=== PATIENT | male | born 1965 ===

== ENCOUNTER 2019-09-17 17:26 | Emergency (ER) | payer BC ==
[2019-09-17] MEDS ORDERED: HYDROmorphone 1 MG/ML Syringe IVPUSH PRN (20:17)
[2019-09-17] MEDS ORDERED: Sodium Chloride 0.9% 2,000 ML IV ONE (20:17)
[2019-09-17] MEDS ORDERED: Vancomycin 1.5 GM in Sodium Chloride 0.9% 500 ML IV STA (20:18)
[2019-09-17] MEDS ORDERED: Ketorolac 30 MG/ML SDV IVPUSH ONE (20:18)
[2019-09-17] MEDS ORDERED: Cefepime 2 GM in Premix Bag 1 BAG IV ONE (20:22)
[2019-09-17] MEDS ORDERED: Clindamycin Phosphate in D5W 900 MG in Premix Bag 1 BAG IV ONE ×2 (20:43)
[2019-09-17] MEDS ORDERED: Iopamidol 755 Mg/ML 100 ML Bottle IVPUSH STA (20:59)
[2019-09-17 21:02] LABS: CARBON DIOXIDE,CO2 28.5 mmol/L (21.0-32.0); POTASSIUM,K 4.7 mmol/L (3.5-5.1)
--- NOTE | 2019-09-17 21:27 | CT ---
INDICATION: Swelling and redness posterior upper thigh. Sepsis. History of leukemia. TECHNIQUE: 100 mL Isovue-370 IV contrast. FINDINGS: Reticular attenuation in the medial posterior mid to distal subcutaneous soft tissues of the thigh. Small skin blisters above the subcutaneous edema attenuation and skin thickening over the level of edema. No organized fluid. Reticular and ill-defined hazy edema extends in the tissue plane of the medial compartment muscles along the inferior margin of the adductor muscles and under the gracilis and sartorius and along the medial margin of the semimembranosus. Minor low-attenuation reticular edema in the posterior inferior adductor hodan. No soft tissue air. IMPRESSION: Cellulitis with fasciitis and potentially myositis in the mid post medial thigh. No air is seen however necrotizing fasciitis is of concern by clinical history and imaging appearance. Results discussed with and acknowledged by ordering clinician Froylan Ni at 925 p.m. 17 September 2019. Please note that all CT scans at this facility use dose modulation, iterative reconstruction, and/or weight-based dosing when appropriate to reduce radiation dose to as low as reasonably achievable. Dictated by Humberto Morel MD @ Sep 17 2019 9:27PM Signed by Dr. Humberto Morel @ Sep 17 2019 9:27PM
[2019-09-17] MEDS ORDERED: Hydrocortisone Sodium Succinate 100 MG/2 ML SDV IVPUSH ONE (21:35)
--- NOTE | 2019-09-17 21:42 | EDM.PDOC ---
ED HPI GENERAL MEDICAL PROBLEM - General Chief Complaint: General Stated Complaint: NUMBNESS IN BACK AND ARM Time Seen by Provider: 09/17/19 19:44 - History of Present Illness INITIAL COMMENTS - FREE TEXT/NARRATIVE: HPI 53-year-old male with CLL on steroids presents for evaluation of 1+ day of right posterior mid thigh redness, warmth, pain, and swelling now with mild right AC joint pain and redness on some of his fingertips, febrile as of today with shaking chills; denies further symptoms. Patient does not drink alcohol. Triage note: c/o right thigh, left shoulder pain for 3 days. patient has hx of CLL M/S/F/SocHx notable for: please see HPI; remainder reviewed with patient and in chart. ROS: Negative constitutional, eye, cardiovascular, pulmonary, GI, , MSK, skin , neurologic, psychiatric, endocrine unless noted in the HPI. Exam HR 97, RR 20, BP 110/60, T 30.3C, SaO2 100% on room air at 6:26 PM. Gen: pleasant, unwell appearing, resting in significant discomfort, underclothing and appears to have chills. HEENT: NC, AT, PEERL, EOMI, neck supple, no goiter appreciated. Resp: Clear to auscultation bilaterally, normal work of breathing, no accessory muscle usage. Card: Regular rate and rhythm with no murmurs, rubs, or gallops, extremities warm and well perfused. GI: Non-tender to palpation throughout all quadrants, no focal tenderness at McBurney's point, negative Weston's sign, non-distended, no rebound or guarding. : No suprapubic tenderness to palpation. Perineum visually normal, visually normal male external genitalia. MSK/skin: * RLE - right mid thigh with approximately 10 cm wide by 15 cm long area of erythema, significant tenderness, and warmth, no crepitus or fluctuance. * RUE - right shoulder visually normal, no effusion, no pain on movement of his shoulder. There is AC joint tenderness to palpation. * Fingers left 3rd (middle) finger with erythema, warmth, and tenderness on the skin on the proximal/lateral aspect of the nail. Right 4th (ring) finger with identical findings. Hands and feet without Oslers nodes, Janeway lesions, or splinter hemorrhages. Neuro: alert and oriented 3, no facial asymmetry, vision and hearing WNL. Psych: Mood and affect appropriate. Focused Soft Tissue Ultrasound Procedure: Limited evaluation of the right mid posterior thigh. Indication: Limited cobblestoning, free fluid without gas between the tissue planes. Views obtained: sagittal and transverse. Findings: subcutaneous cobblestoning, fluid between tissue planes, no gas. Focused Cardiac Ultrasound Indication: Resuscitation Exam type (limited): Initial Views obtained: parasternal long, parasternal short, apical four chamber view, subxiphoid, subxiphoid long-axis view of the IVC. Findings: No pericardial effusion, parasternal short axis without flattening of the intraventricular septum, apical four without RV dilatation or septal bowing. Technically limited view with equivocal vegetation on mitral valve. Labs / Imaging (pertinent): WBC 251 (baseline from 08/03-09/02 from 260-363), Hb 11.1, PLT 172, PT/INR 1.00 , PTT 23.9, Na 134, K 4.7, creatinine 1.5, Bilirubin 1.4, Lactate 1.9, glucose 108, CRP 11.8. CT right lower extremity: cellulitis with fasciitis and potentially myositis in the mid posterior medial thigh. MDM Previous chart, nursing note, labs, imaging, and vitals reviewed. A: 53-year-old male with CLL on steroids presents for evaluation of 1+ day of right posterior mid thigh redness, warmth, pain, and swelling now with mild right AC joint pain and redness on some of his fingertips, febrile as of today with shaking chills; denies further symptoms.. Evaluation: Patient meets CMS sepsis screening guidelines (temperature and heart rate), source as below. Infectious Source: * Pulmonary: no cough, shortness breath, or further grabbing symptoms, imaging not pursued in the patients initial ED evaluation. * Urine: no symptoms, urinalysis not obtained. * Skin: concern for a cutaneous source given the initial symptoms were on the right posterior thigh, and this remains most prominent findings on exam. LRINEC is not felt to be clinically affable giving the underlying CLL. CT concerning for cellulitis with fasciitis. * METHOD CONSULTANT: Doubt given the lack of meningismus, petechia, and the overall clinical presentation. * Abdomen: Doubt given the non-tender abdomen and an alternate source. * Spine: Given the absence of back pain and an alternate source further investigation for possible epidural abscess, spinal osteomyelitis, or discitis are not currently warranted. * Lines: Patient without indwelling lines/ports. Resuscitation: * Blood cultures, 2 L NS, p.r.n. hydromorphone, 30 mg Toradol, 900 mg clindamycin, 1.5 g vancomycin (ordered, 1 g given), and 2 g cefepime (patient with PCN allergy) ordered with the initial evaluation. * 18gauge in left AC, right arm 16gauge ordered. Central line not presently indicated. * 100 mg Hydrocortisone stress dose ordered. * Patient accepted by Dr. Ramos. Disposition: transported by [facility] to [facility]. Impression: sepsis, cellulitis, ?necrotizing fasciitis. (please reference below for remainder of encounter information) Critical Care Time Organ system(s): Cardiopulmonary, vascular, METHOD CONSULTANT, Renal Intervention: Assessment of the patient, interpretation of studies, communication related to patient care. Time: 45 minutes were spent directly related to patient care exclusive of separately billed procedures left shoulder Pain Score (Numeric/FACES): 9 right thigh Pain Score (Numeric/FACES): 10 - Related Data Allergies Allergy/AdvReac Type Severity Reaction Status Date / Time Penicillins Allergy Cannot Verified 09/17/19 18:31 Remember Home Meds: Home Meds Folic Acid 1 tab PO DAILY 09/17/19 [History] Omeprazole 1 tab PO DAILY 09/17/19 [History] predniSONE 70 mg PO DAILY 09/17/19 [History] Past Medical History HEENT History: Reports: Other (See Below) Other HEENT History: reading glasses, has areli hearing aids Cardiovascular History: Reports: None Respiratory History: Reports: None Gastrointestinal History: Reports: GERD Genitourinary History: Reports: Renal Calculus Musculoskeletal History: Reports: Fracture Other Musculoskeletal History: hx of fx collarbone Neurological History: Reports: None Psychiatric History: Reports: None Endocrine/Metabolic History: Reports: None Hematologic History: Reports: Other (See Below) Other Hematologic History: CLL Immunologic History: Reports: None Oncologic (Cancer) History: Reports: Other (See Below) Other Oncologic History: chronic lymphocytic leukemia Dermatologic History: Reports: None - Infectious Disease History Infectious Disease History: Reports: None - Past Surgical History Head Surgeries/Procedures: Reports: None HEENT Surgical History: Reports: Naso-Sinus Surgery, Tonsillectomy Other HEENT Surgeries/Procedures: hx ear drum reconstruction Male Surgical History: Reports: Lithotripsy ([facility]) Social & Family History - Family History Family Medical History: Noncontributory - Tobacco Use Smoking Status *Q: Former Smoker Used Tobacco, but Quit: Yes Month/Year Tobacco Last Used: 2008 - Caffeine Use Caffeine Use: Reports: Tea - Recreational Drug Use Recreational Drug Use: No ED ROS GENERAL - Review of Systems Review Of Systems: See Below ED EXAM, GENERAL - Physical Exam Exam: See Below Course - Vital Signs Last Recorded V/S: Last Vital Signs Temp 37.1 C 09/17/19 21:15 Pulse 106 H 09/17/19 21:15 Resp 20 09/17/19 21:15 BP 109/65 09/17/19 21:15 Pulse Ox 97 09/17/19 21:15 - Orders/Labs/Meds Orders: Active Orders 24 hr Category Date Time Status CULTURE BLOOD [BC] Stat Lab 09/17/19 20:22 Received CULTURE BLOOD [BC] Stat Lab 09/17/19 21:07 Received HYDROmorphone [Dilaudid] Med 09/17/19 20:17 Active 0.5 - 1 mg IVPUSH Q1H PRN Sodium Chloride 0.9% [Normal Saline] 2,000 ml Med 09/17/19 20:17 Active IV .Bolus Vancomycin 1 gm Med 09/17/19 20:41 Active Sodium Chloride 0.9% [Normal Saline (AdvBag)] 250 ml IV NOW Blood Culture x2 Reflex Set [OM.PC] Stat Oth 09/17/19 20:14 Ordered Medication Orders Hydromorphone HCl (Dilaudid) 0.5 - 1 mg IVPUSH Q1H PRN PRN Reason: Pain Last Admin: 09/17/19 20:36 Dose: 1 mg Sodium Chloride (Normal Saline) 2,000 mls @ 1,000 mls/hr IV .Bolus ONE Stop: 09/17/19 22:16 Last Admin: 09/17/19 20:37 Dose: 1,000 mls/hr Vancomycin HCl 1 gm/ Sodium (Chloride) 250 mls @ 166 mls/hr IV NOW STA Stop: 09/17/19 22:11 Labs: Laboratory Tests 09/17/19 09/17/19 09/17/19 Range/Units 20:22 20:22 20:22 WBC 251.25 H (4.0-11.0) K/uL RBC 3.50 L (4.50-5.90) M/uL Hgb 11.1 L (13.0-17.0) g/dL Hct 38.8 (38.0-50.0) % MCV 110.9 H (80.0-98.0) fL MCH 31.7 (27.0-32.0) pg MCHC 28.6 L (31.0-37.0) g/dL RDW Std Deviation 68.6 H (28.0-62.0) fl RDW Coeff of Vale 20 H (11.0-15.0) % Plt Count 172 (150-400) K/uL MPV 10.40 (7.40-12.00) fL Add Manual Diff YES Neutrophils % (Manual) 0 L (48.0-80.0) % Lymphocytes % (Manual) 99 H (16.0-40.0) % Monocytes % (Manual) 1 (0.0-15.0) % Nucleated RBC % 0.0 /100WBC Absolute Seg Neuts 0.0 L (1.4-5.7) Lymphocytes # (Manual) 248.7 H (0.6-2.4) Monocytes # (Manual) 2.5 H (0.0-0.8) Nucleated RBCs # 0 K/uL INR 1.00 APTT 23.9 (18.6-31.3) SEC Lactate 1.9 (0.20-2.00) mmol/L Sodium (136-148) mmol/L Potassium (3.5-5.1) mmol/L Chloride (98-107) mmol/L Carbon Dioxide (21.0-32.0) mmol/L BUN (7.0-18.0) mg/dL Creatinine (0.8-1.3) mg/dL Est Cr Clr Drug Dosing mL/min Estimated GFR (MDRD) ml/min Glucose (74-106) mg/dL Calcium (8.5-10.1) mg/dL Total Bilirubin (0.2-1.0) mg/dL AST (15-37) IU/L ALT (14-63) IU/L Alkaline Phosphatase (46-116) U/L C-Reactive Protein (0.00-0.90) mg/dL Total Protein (6.4-8.2) g/dL Albumin (3.4-5.0) g/dL Globulin (2.6-4.0) g/dL Albumin/Globulin Ratio (0.9-1.6) 09/17/19 Range/Units 20:22 WBC (4.0-11.0) K/uL RBC (4.50-5.90) M/uL Hgb (13.0-17.0) g/dL Hct (38.0-50.0) % MCV (80.0-98.0) fL MCH (27.0-32.0) pg MCHC (31.0-37.0) g/dL RDW Std Deviation (28.0-62.0) fl RDW Coeff of Vale (11.0-15.0) % Plt Count (150-400) K/uL MPV (7.40-12.00) fL Add Manual Diff Neutrophils % (Manual) (48.0-80.0) % Lymphocytes % (Manual) (16.0-40.0) % Monocytes % (Manual) (0.0-15.0) % Nucleated RBC % /100WBC Absolute Seg Neuts (1.4-5.7) Lymphocytes # (Manual) (0.6-2.4) Monocytes # (Manual) (0.0-0.8) Nucleated RBCs # K/uL INR APTT (18.6-31.3) SEC Lactate (0.20-2.00) mmol/L Sodium 134 L (136-148) mmol/L Potassium 4.7 (3.5-5.1) mmol/L Chloride 99 (98-107) mmol/L Carbon Dioxide 28.5 (21.0-32.0) mmol/L BUN 22 H (7.0-18.0) mg/dL Creatinine 1.5 H (0.8-1.3) mg/dL Est Cr Clr Drug Dosing 62.51 mL/min Estimated GFR (MDRD) 49.0 ml/min Glucose 108 H (74-106) mg/dL Calcium 8.9 (8.5-10.1) mg/dL Total Bilirubin 1.4 H (0.2-1.0) mg/dL AST 26 (15-37) IU/L ALT 42 (14-63) IU/L Alkaline Phosphatase 40 L (46-116) U/L C-Reactive Protein 11.80 H (0.00-0.90) mg/dL Total Protein 8.7 H (6.4-8.2) g/dL Albumin 3.3 L (3.4-5.0) g/dL Globulin 5.4 H (2.6-4.0) g/dL Albumin/Globulin Ratio 0.6 L (0.9-1.6) Meds: Medications Generic Name Dose Route Start Last Admin Trade Name Freq PRN Reason Stop Dose Admin Hydromorphone HCl 0.5 - 1 mg 09/17/19 20:17 09/17/19 20:36 Dilaudid IVPUSH 1 mg Q1H PRN Administration Pain Sodium Chloride 2,000 mls @ 1,000 mls/hr 09/17/19 20:17 09/17/19 20:37 Normal Saline IV 09/17/19 22:16 1,000 mls/hr .Bolus ONE Administration Vancomycin HCl 1 gm/ Sodium 250 mls @ 166 mls/hr 09/17/19 20:41 Chloride IV 09/17/19 22:11 NOW STA Discontinued Medications Generic Name Dose Route Start Last Admin Trade Name Freq PRN Reason Stop Dose Admin Hydrocortisone Sodium Succinate 100 mg 09/17/19 21:35 Solu-Cortef IVPUSH 09/17/19 21:36 ONETIME ONE Clindamycin Phosphate 900 mg/ 56 mls @ 100 mls/hr 09/17/19 20:18 09/17/19 20: 45 Sodium Chloride IV 09/17/19 20:51 Not Given ONETIME ONE Vancomycin HCl 1.5 gm/ Sodium 500 mls @ 333 mls/hr 09/17/19 20:18 09/17/19 20 :44 Chloride IV 09/17/19 21:48 Not Given NOW STA Cefepime HCl 2 gm/ Premix 50 mls @ 100 mls/hr 09/17/19 20:22 09/17/19 21:02 IV 09/17/19 20:51 100 mls/hr ONETIME ONE Administration Clindamycin Phosphate 900 mg/ 50 mls @ 100 mls/hr 09/17/19 20:43 09/17/19 21: 38 Premix IV 09/17/19 21:12 100 mls/hr ONETIME ONE Administration Iopamidol 100 ml 09/17/19 20:59 Isovue-370 (76%) IVPUSH 09/17/19 21:00 ONETIME STA Ketorolac Tromethamine 30 mg 09/17/19 20:18 09/17/19 20:37 Toradol IVPUSH 09/17/19 20:19 30 mg ONETIME ONE Administration Departure - Departure Time of Disposition: 21:41 Disposition: DC/Tfer to Other 70 Clinical Impression: Sepsis - Discharge Information Referrals: Nayely Calix NP [Primary Care Provider] - Sepsis Event Note - Evaluation Sepsis Screening Result: No Definite Risk - Focused Exam Vital Signs: Vital Signs Temp Pulse Resp BP Pulse Ox 09/17/19 21:15 37.1 C 106 H 20 109/65 97 09/17/19 18:26 38.3 C H 97 20 110/60 100 Date Exam was Performed: 09/17/19 Time Exam was Performed: 21:40 - My Orders Last 24 Hours: My Active Orders 09/17/19 20:14 Blood Culture x2 Reflex Set [OM.PC] Stat 09/17/19 20:17 HYDROmorphone [Dilaudid] 0.5 - 1 mg IVPUSH Q1H PRN Sodium Chloride 0.9% [Normal Saline] 2,000 ml IV .Bolus 09/17/19 20:22 CULTURE BLOOD [BC] Stat 09/17/19 20:41 Vancomycin 1 gm Sodium Chloride 0.9% [Normal Saline (AdvBag)] 250 ml IV NOW 09/17/19 21:07 CULTURE BLOOD [BC] Stat - Assessment/Plan Last 24 Hours: My Active Orders 09/17/19 20:14 Blood Culture x2 Reflex Set [OM.PC] Stat 09/17/19 20:17 HYDROmorphone [Dilaudid] 0.5 - 1 mg IVPUSH Q1H PRN Sodium Chloride 0.9% [Normal Saline] 2,000 ml IV .Bolus 09/17/19 20:22 CULTURE BLOOD [BC] Stat 09/17/19 20:41 Vancomycin 1 gm Sodium Chloride 0.9% [Normal Saline (AdvBag)] 250 ml IV NOW 09/17/19 21:07 CULTURE BLOOD [BC] Stat
== END 2019-09-17 22:13 | disposition other institution (70) ==
LOC: MW.ED 17:26
DX: A41.9 Sepsis, unspecified organism (principal); L03.115 Cellulitis of right lower limb; L03.012 Cellulitis of left finger; K21.9 Gastro-esophageal reflux disease without esophagitis; Z87.891 Personal history of nicotine dependence; Z88.0 Allergy status to penicillin; Z79.899 Other long term (current) drug therapy
CPT/HCPCS: 36415; 73701; 80053; 83605; 85025; 85610; 85730; 86140; 87040; 87077; 87186; 87804; 96361; 96365; 96367; 96368; 96375; 99285; J0692; J1170; J1720; J1885; J3370; J3490; J7030; J7050; 99284

== ENCOUNTER 2019-10-11 12:04 | Inpatient (IN) | payer BC ==
[2019-10-11] MEDS ORDERED: Sodium Chloride 0.9% 1,000 ML IV ONE (12:35)
--- NOTE | 2019-10-11 12:57 | EDM.PDOC ---
ED HPI GENERAL MEDICAL PROBLEM - General Chief Complaint: Gastrointestinal Problem Stated Complaint: PNEUMONIA/VOMITING Time Seen by Provider: 10/11/19 12:23 Source of Information: Reports: Patient History Limitations: Reports: No Limitations - History of Present Illness INITIAL COMMENTS - FREE TEXT/NARRATIVE: HISTORY AND PHYSICAL: History of present illness: Patient is a 53-year-old male who presents to the ED today with concern of diarrhea and abdominal pain over the last 4 days. Patient has a history of CLL and currently is receiving steroid treatment for this daily. Patient was seen in the ED on 09/18/2019 and was flown to [place] with concern of an infection of his leg. Patient states that he had a staph infection of his right thigh and does have a surgical incision there but did not have necrotizing fasciitis. Patient states that he was in the hospital in [place] until 09/24/2019 and was discharged on antibiotics through his PICC line 3 times a day (cefazolin). Patient states that since the he has been receiving antibiotics continuous and has a PICC line and still receiving antibiotics. Patient states that on , 5 days ago, he was having issues with a cough and that on the chest x-ray and said that he had pneumonia. Patient states that since he is on antibiotics 3 times a day already for his leg infection that they did not do any additional or different antibiotics. Patient states that he also feels weak and rundown and has had a decrease in appetite. Patient denies fever, chills, chest pain, shortness of breath. Denies headache, neck stiff ness, change in vision, syncope, or near syncope. Denies nausea, vomiting, or dysuria. Has not noted any blood in urine or stool. Review of systems: As per history of present illness and below otherwise all systems reviewed and negative. Past medical history: As per history of present illness and as reviewed below otherwise noncontributory. Surgical history: As per history of present illness and as reviewed below otherwise noncontributory. Social history: See social history for further information Family history: As per history of present illness and as reviewed below otherwise noncontributory. Physical exam: General: Patient is alert, oriented, and in no acute distress. Patient laying comfortably on exam table, chronically ill appearing. HEENT: Atraumatic, normocephalic, pupils equal and reactive bilaterally, negative for conjunctival pallor or scleral icterus, mucous membranes dry, TMs normal bilaterally, throat clear, neck supple, nontender, trachea midline. No drooling or trismus noted. No meningeal signs. No hot potato voice noted. Lungs: Clear to auscultation, breath sounds equal bilaterally, chest nontender. Heart: S1S2, regular rate and rhythm without overt murmur Abdomen: Soft, nondistended, moderate-severe generalized tenderness of the abdomen without guarding. Negative for masses or hepatosplenomegaly. Negative for costovertebral tenderness. Pelvis: Stable nontender. Genitourinary: Deferred. Rectal: Deferred. Skin: Intact, warm, dry. No lesions or rashes noted. Extremities: Atraumatic, negative for cords or calf pain. Neurovascular unremarkable. Neuro: Awake, alert, oriented. Cranial nerves II through XII unremarkable. Cerebellum unremarkable. Motor and sensory unremarkable throughout. Exam nonfocal. Notes: Dr. Morrissey consulted on patient and will admit to inpatient. Dr. Portillo verbally involved in patient care. Voices understanding and is agreeable to plan of care. Denies any further questions or concerns at this time. Diagnostics: CBC, CMP, UA, EKG, CXR, lipase, stool culture/shiga/campy, ova and parasite, cdiff tox, abd/pelvic CT Therapeutics: NS Impression: Pancolitis Clostridium difficile infection Left lower lobe pneumonia Hyponatremia Hyperkalemia h/o CLL Plan: Admit to inpatient to Dr. Morrissey. Definitive disposition and diagnosis as appropriate pending reevaluation and review of above. Treatments SPECIAL EDUCATION MATH TEACHER: Reports: Other Medication(s) Other Treatments SPECIAL EDUCATION MATH TEACHER: Immodium Abdominal Pain Score (Numeric/FACES): 7 - Related Data Allergies Allergy/AdvReac Type Severity Reaction Status Date / Time Penicillins Allergy Cannot Verified 10/11/19 12:13 Remember Home Meds: Home Meds Folic Acid 10 mg PO DAILY 09/17/19 [History] Omeprazole 2 tab PO DAILY 09/17/19 [History] predniSONE 60 mg PO DAILY 09/17/19 [History] ceFAZolin Sodium In 0.9 % NaCl [Cefazolin 2 G/100 ml-0.9% NaCl] 200 mg IV TID [History] Past Medical History HEENT History: Reports: Other (See Below) Other HEENT History: reading glasses, has areli hearing aids Cardiovascular History: Reports: None Respiratory History: Reports: None Gastrointestinal History: Reports: GERD Genitourinary History: Reports: Renal Calculus Musculoskeletal History: Reports: Fracture Other Musculoskeletal History: hx of fx collarbone Neurological History: Reports: None Psychiatric History: Reports: None Endocrine/Metabolic History: Reports: None Hematologic History: Reports: Other (See Below) Other Hematologic History: CLL Immunologic History: Reports: None Oncologic (Cancer) History: Reports: Other (See Below) Other Oncologic History: chronic lymphocytic leukemia (CLL) Dermatologic History: Reports: None Other Dermatologic History: Staph infection - Infectious Disease History Infectious Disease History: Reports: None - Past Surgical History Head Surgeries/Procedures: Reports: None HEENT Surgical History: Reports: Naso-Sinus Surgery, Tonsillectomy Other HEENT Surgeries/Procedures: hx ear drum reconstruction Male Surgical History: Reports: Lithotripsy ([facility]) Social & Family History - Family History Family Medical History: Noncontributory - Tobacco Use Smoking Status *Q: Never Smoker - Caffeine Use Caffeine Use: Reports: Tea - Recreational Drug Use Recreational Drug Use: No ED ROS GENERAL - Review of Systems Review Of Systems: Comprehensive ROS is negative, except as noted in HPI. ED EXAM, GENERAL - Physical Exam Exam: See Below (see dictation) Course - Vital Signs Last Recorded V/S: Last Vital Signs Temp 98.1 F 10/11/19 12:07 Pulse 109 H 10/11/19 12:07 Resp 16 10/11/19 12:07 BP 114/73 10/11/19 12:07 Pulse Ox 94 L 10/11/19 12:07 - Orders/Labs/Meds Orders: Active Orders 24 hr Category Date Time Status EKG Documentation Completion [RC] STAT Care 10/11/19 12:36 Active CULTURE BLOOD [BC] Stat Lab 10/11/19 12:55 Received CULTURE BLOOD [BC] Stat Lab 10/11/19 13:05 Received OVA & PARASITES BY IMMUNOASSAY [MREF] Stat Lab 10/11/19 15:00 Received STOOL CULTURE/SHIGA TOXIN [MREF] Stat Lab 10/11/19 15:00 Received Blood Culture x2 Reflex Set [OM.PC] Stat Oth 10/11/19 12:37 Ordered Labs: Laboratory Tests 10/11/19 10/11/19 10/11/19 Range/Units 12:43 12:43 12:43 WBC 392.57 H (4.0-11.0) K/uL RBC 4.56 (4.50-5.90) M/uL Hgb 13.9 (13.0-17.0) g/dL Hct 47.5 (38.0-50.0) % MCV 104.2 H (80.0-98.0) fL MCH 30.5 (27.0-32.0) pg MCHC 29.3 L (31.0-37.0) g/dL RDW Std Deviation 55.0 (28.0-62.0) fl RDW Coeff of Vale 18 H (11.0-15.0) % Plt Count 164 (150-400) K/uL MPV 11.90 (7.40-12.00) fL Add Manual Diff YES Neutrophils % (Manual) 1 L (48.0-80.0) % Band Neutrophils % 1 % Lymphocytes % (Manual) 97 H (16.0-40.0) % Monocytes % (Manual) 1 (0.0-15.0) % Nucleated RBC % 0.0 /100WBC Absolute Seg Neuts 3.9 (1.4-5.7) Band Neutrophils # 3.9 Lymphocytes # (Manual) 380.8 H (0.6-2.4) Monocytes # (Manual) 3.9 H (0.0-0.8) Nucleated RBCs # 0 K/uL Smudge Cells MODERATE Lactate 1.4 (0.20-2.00) mmol/L Sodium 127 L (136-148) mmol/L Potassium 6.2 H (3.5-5.1) mmol/L Chloride 95 L (98-107) mmol/L Carbon Dioxide 23.7 (21.0-32.0) mmol/L BUN 38 H (7.0-18.0) mg/dL Creatinine 1.8 H (0.8-1.3) mg/dL Est Cr Clr Drug Dosing 51.76 mL/min Estimated GFR (MDRD) 39.7 ml/min Glucose 146 H (74-106) mg/dL Calcium 8.3 L (8.5-10.1) mg/dL Total Bilirubin 0.7 (0.2-1.0) mg/dL AST 21 (15-37) IU/L ALT 12 L (14-63) IU/L Alkaline Phosphatase 87 (46-116) U/L Total Protein 7.1 (6.4-8.2) g/dL Albumin 1.8 L (3.4-5.0) g/dL Globulin 5.3 H (2.6-4.0) g/dL Albumin/Globulin Ratio 0.3 L (0.9-1.6) Lipase 52 L (73-393) U/L Urine Color Urine Appearance Urine pH (5.0-8.0) Ur Specific Mckittrick (1.001-1.035) Urine Protein (NEGATIVE) mg/dL Urine Glucose (UA) (NEGATIVE) mg/dL Urine Ketones (NEGATIVE) mg/dL Urine Occult Blood (NEGATIVE) Urine Nitrite (NEGATIVE) Urine Bilirubin (NEGATIVE) Urine Ictotest Urine Urobilinogen (<2.0) EU/dL Ur Leukocyte Esterase (NEGATIVE) Urine RBC (0-2/HPF) Urine WBC (0-5/HPF) Ur Epithelial Cells (NONE-FEW) Urine Bacteria (NEGATIVE) Urine Mucus (NONE-MOD) 10/11/19 Range/Units 14:56 WBC (4.0-11.0) K/uL RBC (4.50-5.90) M/uL Hgb (13.0-17.0) g/dL Hct (38.0-50.0) % MCV (80.0-98.0) fL MCH (27.0-32.0) pg MCHC (31.0-37.0) g/dL RDW Std Deviation (28.0-62.0) fl RDW Coeff of Vale (11.0-15.0) % Plt Count (150-400) K/uL MPV (7.40-12.00) fL Add Manual Diff Neutrophils % (Manual) (48.0-80.0) % Band Neutrophils % % Lymphocytes % (Manual) (16.0-40.0) % Monocytes % (Manual) (0.0-15.0) % Nucleated RBC % /100WBC Absolute Seg Neuts (1.4-5.7) Band Neutrophils # Lymphocytes # (Manual) (0.6-2.4) Monocytes # (Manual) (0.0-0.8) Nucleated RBCs # K/uL Smudge Cells Lactate (0.20-2.00) mmol/L Sodium (136-148) mmol/L Potassium (3.5-5.1) mmol/L Chloride (98-107) mmol/L Carbon Dioxide (21.0-32.0) mmol/L BUN (7.0-18.0) mg/dL Creatinine (0.8-1.3) mg/dL Est Cr Clr Drug Dosing mL/min Estimated GFR (MDRD) ml/min Glucose (74-106) mg/dL Calcium (8.5-10.1) mg/dL Total Bilirubin (0.2-1.0) mg/dL AST (15-37) IU/L ALT (14-63) IU/L Alkaline Phosphatase (46-116) U/L Total Protein (6.4-8.2) g/dL Albumin (3.4-5.0) g/dL Globulin (2.6-4.0) g/dL Albumin/Globulin Ratio (0.9-1.6) Lipase (73-393) U/L Urine Color DARK YELLOW Urine Appearance CLEAR Urine pH 5.5 (5.0-8.0) Ur Specific Mckittrick >= 1.030 (1.001-1.035) Urine Protein 100 H (NEGATIVE) mg/dL Urine Glucose (UA) NEGATIVE (NEGATIVE) mg/dL Urine Ketones NEGATIVE (NEGATIVE) mg/dL Urine Occult Blood TRACE-INTACT H (NEGATIVE) Urine Nitrite NEGATIVE (NEGATIVE) Urine Bilirubin SMALL H (NEGATIVE) Urine Ictotest NEGATIVE Urine Urobilinogen 0.2 (<2.0) EU/dL Ur Leukocyte Esterase NEGATIVE (NEGATIVE) Urine RBC 0-1 (0-2/HPF) Urine WBC 0-1 (0-5/HPF) Ur Epithelial Cells FEW (NONE-FEW) Urine Bacteria FEW (NEGATIVE) Urine Mucus LIGHT (NONE-MOD) Meds: Medications Discontinued Medications Generic Name Dose Route Start Last Admin Trade Name Solomonq PRN Reason Stop Dose Admin Sodium Chloride 1,000 mls @ 999 mls/hr 10/11/19 12:35 10/11/19 13:02 Normal Saline IV 10/11/19 13:35 999 mls/hr BOLUS ONE Administration Departure - Departure Time of Disposition: 16:32 Disposition: Admitted As Inpatient 66 Clinical Impression: Pancolitis, Clostridium difficile infection, Hyponatremia, Hypokalemia, CLL ( chronic lymphocytic leukemia) Pneumonia Qualifiers: Pneumonia type: due to unspecified organism Laterality: left Lung location: lower lobe of lung Qualified Code(s): J18.9 - Pneumonia, unspecified organism - Discharge Information Referrals: Nayely Calix DENSITOMETER READER [Primary Care Provider] - Forms: ED Department Discharge Sepsis Event Note - Evaluation Sepsis Screening Result: Possible Sepsis Risk - Focused Exam Vital Signs: Vital Signs Temp Pulse Resp BP Pulse Ox 10/11/19 12:07 98.1 F 109 H 16 114/73 94 L Date Exam was Performed: 10/11/19 Time Exam was Performed: 16:28 - My Orders Last 24 Hours: My Active Orders 10/11/19 12:36 EKG Documentation Completion [RC] STAT 10/11/19 12:37 Blood Culture x2 Reflex Set [OM.PC] Stat 10/11/19 12:55 CULTURE BLOOD [BC] Stat 10/11/19 13:05 CULTURE BLOOD [BC] Stat 10/11/19 15:00 OVA & PARASITES BY IMMUNOASSAY [MREF] Stat STOOL CULTURE/SHIGA TOXIN [MREF] Stat - Assessment/Plan Last 24 Hours: My Active Orders 10/11/19 12:36 EKG Documentation Completion [RC] STAT 10/11/19 12:37 Blood Culture x2 Reflex Set [OM.PC] Stat 10/11/19 12:55 CULTURE BLOOD [BC] Stat 10/11/19 13:05 CULTURE BLOOD [BC] Stat 10/11/19 15:00 OVA & PARASITES BY IMMUNOASSAY [MREF] Stat STOOL CULTURE/SHIGA TOXIN [MREF] Stat
--- NOTE | 2019-10-11 13:05 | CR ---
Chest: Portable view of the chest was obtained. Comparison: Prior chest x-ray 10/08/19. Continuing parenchymal density noted within the left upper chest. No change is seen from prior chest x-ray. Lungs are otherwise clear. Right-sided PICC line is seen. Heart size and mediastinum are normal. Impression: 1. Continuing increased density within the left upper chest. No change from prior exam. 2. Right sided PICC line. 3. Nothing acute is otherwise seen. Diagnostic code #3 This report was dictated in [place] Standard Time
[2019-10-11 13:25] LABS: CARBON DIOXIDE,CO2 23.7 mmol/L (21.0-32.0); POTASSIUM,K 6.2 mmol/L (3.5-5.1)
--- NOTE | 2019-10-11 15:46 | CT ---
INDICATION: Periumbilical abdominal pain. TECHNIQUE: CT of the abdomen and pelvis without intravenous contrast. Coronal and sagittal reconstructions. COMPARISON: None. FINDINGS: There is wall thickening throughout the entire colon, greatest in the ascending colon and cecum where it is marked (for example series 201 image 113 and series 203, image 40). An underlying neoplasm is not excluded. Inflammatory fat stranding about the entire colon. Small amount of free fluid in the pelvis as well as within the right pericolic gutter. Colonic diverticulosis. The appendix is not identified. No free air is identified. Evaluation for abscess is limited by the lack of IV contrast. No small bowel dilation. Multiple tiny calcified hepatic and splenic granulomas. The unenhanced liver and spleen are otherwise unremarkable. The unenhanced gallbladder, pancreas, and adrenal glands are normal in appearance. Small bilateral nonobstructing renal caliceal stones. No hydronephrosis. The bladder is unremarkable. Multiple enlarged periaortic lymph nodes are indeterminate and could be reactive or metastatic. For example, a left periaortic lymph node measures 1.9 x 3.9 cm (series 201, image 74). Multiple additional prominent retroperitoneal pelvic lymph nodes bilaterally. Patchy opacity in the left lower lobe is suspicious for pneumonia. Faint micronodular infiltrates in the right middle lobe, right lower lobe, and lingula are likely infectious or inflammatory. Calcified granuloma left lower lobe. Calcified left hilar lymph nodes compatible with prior granulomatous disease. IMPRESSION: 1. Diffuse pancolitis, greatest in the ascending colon and cecum. An underlying neoplasm is not excluded. No evidence of perforation. Findings discussed with Katie Medina at 3:45 p.m. on 10/11/2019. 2. Mild amount of free fluid throughout the abdomen and pelvis is likely reactive. 3. Multiple enlarged periaortic lymph nodes could be reactive or metastatic. 4. Patchy opacity in the left lower lobe suspicious for pneumonia. 5. Micronodular infiltrates throughout the remainder of both lung bases are likely infectious or inflammatory. Please note that all CT scans at this facility use dose modulation, iterative reconstruction, and/or weight-based dosing when appropriate to reduce radiation dose to as low as reasonably achievable. Dictated by Sabrina Wilkes MD @ Oct 11 2019 3:29PM Signed by Dr. Sabrina Wilkes @ Oct 11 2019 3:45PM
[2019-10-11] MEDS ORDERED: Insulin Regular, Human 100 Units/ML 10 ML Vial IVPUSH ONE (16:37)
[2019-10-11] MEDS ORDERED: Calcium Gluconate 10% 1 GM/10 ML SDV IVPUSH ONE (16:37)
[2019-10-11] MEDS ORDERED: 50% Dextrose in Water 50 ML Syringe IVPUSH ONE (16:37)
--- NOTE | 2019-10-11 16:46 | PCM.HP.2 ---
H&P History of Present Illness - General Date of Service: 10/11/19 Admit Problem/Dx: Admission Diagnosis/Problem Admission Diagnosis/Problem Colitis Source of Information: Patient History Limitations: Reports: No Limitations - History of Present Illness Initial Comments - Free Text/Narative: This 53 year old male with pmh of CLL recent staph infection to R thigh with ongoing IV Cefazolin order by ID in [facility]. He reports he started having explosive diarrhea 3-4 days ago, has been trying to keep it at bay with Imodium without a lot of success. He is having diffuse abdominal pain with mild nausea. He was also recently diagnosed with L lower lobe pneumonia, but no added treatment besides keeping with Cefazolin. He reports mild fevers/chills at home. No chest pain or SOB. No urinary concerns. Stools are watery and mucous, brown in color no black or bloody stool noted. He reports he has been on steroids 60 mg daily for CLL for the last 3-4 months, no other treatment that he is aware of, Will obtain last clinic note from Dr Hinton. He denies tobacco use no alcohol use and no recreational drug use. In the ED leukocytosis noted at 390,000,m baseline is mid 200,000. Hgb 13, platelets 164,000, Na 127, K+ 6.2, Cl 95, BUN 38, Cr 1.8. CT abdomen revealed diffuse pancolitis without perforation or abscess noted, worse in ascending colon and cecum. along with patchy opacity to L lower lobe. He was given IVFs in the ED. EKG showed peaked T waves, tachycardia no ST elevation. Abdominal Pain Score (Numeric/FACES): 7 - Related Data Allergies/Adverse Reactions: Allergies Allergy/AdvReac Type Severity Reaction Status Date / Time Penicillins Allergy Cannot Verified 10/11/19 12:13 Remember Home Medications: Home Meds Folic Acid 10 mg PO DAILY 09/17/19 [History] Omeprazole 2 tab PO DAILY 09/17/19 [History] predniSONE 60 mg PO DAILY 09/17/19 [History] ceFAZolin Sodium In 0.9 % NaCl [Cefazolin 2 G/100 ml-0.9% NaCl] 200 mg IV TID [History] Past Medical History HEENT History: Reports: Other (See Below) Other HEENT History: reading glasses, has areli hearing aids Cardiovascular History: Reports: None Respiratory History: Reports: None Gastrointestinal History: Reports: GERD Genitourinary History: Reports: Renal Calculus Musculoskeletal History: Reports: Fracture Other Musculoskeletal History: hx of fx collarbone Neurological History: Reports: None Psychiatric History: Reports: None Endocrine/Metabolic History: Reports: None Hematologic History: Reports: Other (See Below) Other Hematologic History: CLL Immunologic History: Reports: None Oncologic (Cancer) History: Reports: Other (See Below) Other Oncologic History: chronic lymphocytic leukemia (CLL) Dermatologic History: Reports: None Other Dermatologic History: Staph infection - Infectious Disease History Infectious Disease History: Reports: None - Past Surgical History Head Surgeries/Procedures: Reports: None HEENT Surgical History: Reports: Naso-Sinus Surgery, Tonsillectomy Other HEENT Surgeries/Procedures: hx ear drum reconstruction Male Surgical History: Reports: Lithotripsy (ESWL) Social & Family History - Family History Family Medical History: Noncontributory - Tobacco Use Smoking Status *Q: Never Smoker - Caffeine Use Caffeine Use: Reports: Tea - Alcohol Use Alcohol Use History: No - Recreational Drug Use Recreational Drug Use: No - Living Situation & Occupation Living situation: Reports: Occupation: Employed H&P Review of Systems - Review of Systems: Review Of Systems: See Below General: Reports: Fever, Chills, Malaise, Fatigue HEENT: Reports: No Symptoms. Denies: Headaches, Sore Throat Pulmonary: Reports: Cough (productive sputum). Denies: Shortness of Breath Cardiovascular: Reports: No Symptoms. Denies: Chest Pain Gastrointestinal: Reports: Abdominal Pain, Anorexia, Diarrhea, Nausea, Vomiting. Denies: Black Stool, Bloody Stool Genitourinary: Reports: No Symptoms. Denies: Dysuria, Frequency, Burning Musculoskeletal: Reports: No Symptoms Skin: Reports: No Symptoms Psychiatric: Reports: No Symptoms Neurological: Reports: No Symptoms Hematologic/Lymphatic: Reports: No Symptoms Exam - Exam Exam: See Below - Vital Signs Vital Signs: Last Vital Signs Temp 98.1 F 10/11/19 12:07 Pulse 109 H 10/11/19 12:07 Resp 16 10/11/19 12:07 BP 114/73 10/11/19 12:07 Pulse Ox 94 L 10/11/19 12:07 Weight: 77.111 kg - Exam General: Alert, Oriented HEENT: Conjunctiva Clear, Mucosa Moist & Estelle Lungs: Normal Respiratory Effort, Crackles (Left lower lobe) Cardiovascular: Regular Rhythm, Tachycardia GI/Abdominal Exam: Soft, Tender (diffusely). No: Normal Bowel Sounds ( hyperactive) Back Exam: Normal Inspection, Full Range of Motion Extremities: Normal Inspection, Normal Range of Motion, Non-Tender Skin: Incision (sutures to R medial thigh) Neuro Extensive - Motor, Sensory, Reflexes: CN II-XII Intact, Normal Gait Psychiatric: Alert, Normal Affect, Normal Mood - Patient Data Lab Results Last 24 hrs: Laboratory Results - last 24 hr 10/11/19 10/11/19 10/11/19 Range/Units 12:43 12:43 12:43 WBC 392.57 H (4.0-11.0) K/uL RBC 4.56 (4.50-5.90) M/uL Hgb 13.9 (13.0-17.0) g/dL Hct 47.5 (38.0-50.0) % MCV 104.2 H (80.0-98.0) fL MCH 30.5 (27.0-32.0) pg MCHC 29.3 L (31.0-37.0) g/dL RDW Std Deviation 55.0 (28.0-62.0) fl RDW Coeff of Vale 18 H (11.0-15.0) % Plt Count 164 (150-400) K/uL MPV 11.90 (7.40-12.00) fL Add Manual Diff YES Neutrophils % (Manual) 1 L (48.0-80.0) % Band Neutrophils % 1 % Lymphocytes % (Manual) 97 H (16.0-40.0) % Monocytes % (Manual) 1 (0.0-15.0) % Nucleated RBC % 0.0 /100WBC Absolute Seg Neuts 3.9 (1.4-5.7) Band Neutrophils # 3.9 Lymphocytes # (Manual) 380.8 H (0.6-2.4) Monocytes # (Manual) 3.9 H (0.0-0.8) Nucleated RBCs # 0 K/uL Smudge Cells MODERATE Lactate 1.4 (0.20-2.00) mmol/L Sodium 127 L (136-148) mmol/L Potassium 6.2 H (3.5-5.1) mmol/L Chloride 95 L (98-107) mmol/L Carbon Dioxide 23.7 (21.0-32.0) mmol/L BUN 38 H (7.0-18.0) mg/dL Creatinine 1.8 H (0.8-1.3) mg/dL Est Cr Clr Drug Dosing 51.76 mL/min Estimated GFR (MDRD) 39.7 ml/min Glucose 146 H (74-106) mg/dL Calcium 8.3 L (8.5-10.1) mg/dL Total Bilirubin 0.7 (0.2-1.0) mg/dL AST 21 (15-37) IU/L ALT 12 L (14-63) IU/L Alkaline Phosphatase 87 (46-116) U/L Total Protein 7.1 (6.4-8.2) g/dL Albumin 1.8 L (3.4-5.0) g/dL Globulin 5.3 H (2.6-4.0) g/dL Albumin/Globulin Ratio 0.3 L (0.9-1.6) Lipase 52 L (73-393) U/L Urine Color Urine Appearance Urine pH (5.0-8.0) Ur Specific [place] (1.001-1.035) Urine Protein (NEGATIVE) mg/dL Urine Glucose (UA) (NEGATIVE) mg/dL Urine Ketones (NEGATIVE) mg/dL Urine Occult Blood (NEGATIVE) Urine Nitrite (NEGATIVE) Urine Bilirubin (NEGATIVE) Urine Ictotest Urine Urobilinogen (<2.0) EU/dL Ur Leukocyte Esterase (NEGATIVE) Urine RBC (0-2/HPF) Urine WBC (0-5/HPF) Ur Epithelial Cells (NONE-FEW) Urine Bacteria (NEGATIVE) Urine Mucus (NONE-MOD) 10/11/19 Range/Units 14:56 WBC (4.0-11.0) K/uL RBC (4.50-5.90) M/uL Hgb (13.0-17.0) g/dL Hct (38.0-50.0) % MCV (80.0-98.0) fL MCH (27.0-32.0) pg MCHC (31.0-37.0) g/dL RDW Std Deviation (28.0-62.0) fl RDW Coeff of Vale (11.0-15.0) % Plt Count (150-400) K/uL MPV (7.40-12.00) fL Add Manual Diff Neutrophils % (Manual) (48.0-80.0) % Band Neutrophils % % Lymphocytes % (Manual) (16.0-40.0) % Monocytes % (Manual) (0.0-15.0) % Nucleated RBC % /100WBC Absolute Seg Neuts (1.4-5.7) Band Neutrophils # Lymphocytes # (Manual) (0.6-2.4) Monocytes # (Manual) (0.0-0.8) Nucleated RBCs # K/uL Smudge Cells Lactate (0.20-2.00) mmol/L Sodium (136-148) mmol/L Potassium (3.5-5.1) mmol/L Chloride (98-107) mmol/L Carbon Dioxide (21.0-32.0) mmol/L BUN (7.0-18.0) mg/dL Creatinine (0.8-1.3) mg/dL Est Cr Clr Drug Dosing mL/min Estimated GFR (MDRD) ml/min Glucose (74-106) mg/dL Calcium (8.5-10.1) mg/dL Total Bilirubin (0.2-1.0) mg/dL AST (15-37) IU/L ALT (14-63) IU/L Alkaline Phosphatase (46-116) U/L Total Protein (6.4-8.2) g/dL Albumin (3.4-5.0) g/dL Globulin (2.6-4.0) g/dL Albumin/Globulin Ratio (0.9-1.6) Lipase (73-393) U/L Urine Color DARK YELLOW Urine Appearance CLEAR Urine pH 5.5 (5.0-8.0) Ur Specific [place] >= 1.030 (1.001-1.035) Urine Protein 100 H (NEGATIVE) mg/dL Urine Glucose (UA) NEGATIVE (NEGATIVE) mg/dL Urine Ketones NEGATIVE (NEGATIVE) mg/dL Urine Occult Blood TRACE-INTACT H (NEGATIVE) Urine Nitrite NEGATIVE (NEGATIVE) Urine Bilirubin SMALL H (NEGATIVE) Urine Ictotest NEGATIVE Urine Urobilinogen 0.2 (<2.0) EU/dL Ur Leukocyte Esterase NEGATIVE (NEGATIVE) Urine RBC 0-1 (0-2/HPF) Urine WBC 0-1 (0-5/HPF) Ur Epithelial Cells FEW (NONE-FEW) Urine Bacteria FEW (NEGATIVE) Urine Mucus LIGHT (NONE-MOD) Result Diagrams: 10/11/19 12:43 10/11/19 12:43 Jeanmarie Results Last 24 hrs: Microbiology 10/11/19 15:00 C. difficile Antigen & Toxins A,B - Final Stool / Feces EKG INTERPRETATION EKG Date: 10/11/19 Rhythm: NSR P-Wave: Present QRS: Normal ST-T: Normal EKG Interpretation Comments: peaked t waves Sepsis Event Note - Evaluation Sepsis Screening Result: Possible Sepsis Risk - Focused Exam Vital Signs: Vital Signs Temp Pulse Resp BP Pulse Ox 10/11/19 12:07 98.1 F 109 H 16 114/73 94 L Date Exam was Performed: 10/11/19 Time Exam was Performed: 16:40 - Problem List (1) Clostridium difficile infection SNOMED Code(s): 005562169 ICD Code: A49.8 - OTHER BACTERIAL INFECTIONS OF UNSPECIFIED SITE Status: Acute Current Visit: Yes (2) Pancolitis SNOMED Code(s): 659634646 ICD Code: K51.00 - ULCERATIVE (CHRONIC) PANCOLITIS WITHOUT COMPLICATIONS Status: Acute Current Visit: Yes (3) BON (acute kidney injury) SNOMED Code(s): 76510965, 10845953 ICD Code: N17.9 - ACUTE KIDNEY FAILURE, UNSPECIFIED Status: Acute Current Visit: Yes (4) Hyperkalemia SNOMED Code(s): 25743900 ICD Code: E87.5 - HYPERKALEMIA Status: Acute Current Visit: Yes (5) Nausea and vomiting SNOMED Code(s): 99032511 ICD Code: R11.2 - NAUSEA WITH VOMITING, UNSPECIFIED Status: Acute Current Visit: No Qualifiers: Vomiting type: unspecified Vomiting Intractability: non-intractable Qualified Code(s): R11.2 - Nausea with vomiting, unspecified (6) Hyponatremia SNOMED Code(s): 35543809 ICD Code: E87.1 - HYPO-OSMOLALITY AND HYPONATREMIA Status: Acute Current Visit: Yes (7) Pneumonia SNOMED Code(s): 974382520 ICD Code: J18.9 - PNEUMONIA, UNSPECIFIED ORGANISM Status: Acute Current Visit: Yes Qualifiers: Pneumonia type: due to unspecified organism Laterality: left Lung location: lower lobe of lung Qualified Code(s): J18.9 - Pneumonia, unspecified organism (8) CLL (chronic lymphocytic leukemia) SNOMED Code(s): 92785471 ICD Code: C91.10 - CHRONIC LYMPHOCYTIC LEUK OF B-CELL TYPE NOT ACHIEVE REMIS Status: Chronic Current Visit: Yes Problem List Initiated/Reviewed/Updated: Yes Orders Last 24hrs: Active Orders 24 hr Category Date Time Status Admission Status [Patient Status] [ADT] Stat ADT 10/11/19 16:31 Active EKG Documentation Completion [RC] STAT Care 10/11/19 12:36 Active Telemetry Monitoring [Cardiac Monitoring] [RC] . Care 10/11/19 16:39 Ordered DIRECTED CULTURE BLOOD [BC] Stat Lab 10/11/19 12:55 Received CULTURE BLOOD [BC] Stat Lab 10/11/19 13:05 Received OVA & PARASITES BY IMMUNOASSAY [MREF] Stat Lab 10/11/19 15:00 Received STOOL CULTURE/SHIGA TOXIN [MREF] Stat Lab 10/11/19 15:00 Received Sodium Chloride 0.9% [Normal Saline] 1,000 ml Med 10/11/19 16:45 Ordered IV Q8H Blood Culture x2 Reflex Set [OM.PC] Stat Oth 10/11/19 12:37 Ordered Medication Orders Sodium Chloride (Normal Saline) 1,000 mls @ 125 mls/hr IV Q8H MOOSE Assessment/Plan Comment:: This 53 year old male admitted with diffuse abdominal pain, diarrhea found to have Cdiff and BON 1. Cdiff colitis: NPO with ice chips ok. Oral Vancomcyin QID. IVFs for now. Other stool studies pending. Pending oncology notes to review oncology medication and treatment plan. Pain medications PRN 2. BON: IVFs as above. Hold nephrotoxic medications 3. Hyperkalemia: Peaked T noted on EKG. Will give D50 with 10 units insulin and Calcium 1 gm IV now. Recheck this evening. Monitor on telemetry 4. Hyponatremia: IVFs monitor for slow correction. likely secondary to diarrhea and dehydration 5. Recent thigh infection: Obtain records from [facility] and contact ID in am. For now Continue Cefazolin TID IV. May remove sutures. 6. CAP: Continue Cefazolin, patient reports this is loosing up and feeling improved. Duonebs PRN and sputum culture due to possible opportunistic infections with CLL and steroids. 7. CLL: Monitoring, will obtain records from Dr Hinton. VTE prophylaxis: Heparin Dispo: 2-3 days
[2019-10-11] MEDS: Sodium Chloride 0.9% 1,000 ML IV SCH (17:07)
[2019-10-11] MEDS: Heparin Sodium 5,000 Units/ML Vial SUBCUT SCH (17:18)
[2019-10-11] MEDS: Vancomycin 125 MG Cap PO SCH (18:08)
[2019-10-11] MEDS: Morphine 2 MG/ML Syringe IVPUSH PRN (18:55)
[2019-10-11] MEDS: Acetaminophen 325 MG Tab PO PRN (19:16)
[2019-10-11] MEDS ORDERED: Lactated Ringers 1,000 ML IV ONE (19:21)
[2019-10-11] MEDS ORDERED: Sodium Polystyrene Sulfonate 15 GM/60 ML Susp 60 ML Bot PO ONE (19:23)
[2019-10-11] MEDS ORDERED: CEFAZOLIN SODIUM IV SCH (22:00)
[2019-10-11] MEDS ORDERED: [UNRECOGNIZED DRUG - OTHER] IV SCH (22:00)
[2019-10-11] MEDS ORDERED: NACL 0.9% IV SCH (22:00)
[2019-10-11 22:03] LABS: POTASSIUM,K 5.2 mmol/L (3.5-5.1)
[2019-10-12] MEDS: SODIUM CHLORIDE 0.9% IV SCH ×2 (00:10→06:49)
[2019-10-12] MEDS: CEFAZOLIN IV SCH ×2 (00:10→06:49)
[2019-10-12] MEDS: Morphine 2 MG/ML Syringe IVPUSH PRN (00:11)
[2019-10-12] MEDS: Heparin Sodium 5,000 Units/ML Vial SUBCUT SCH ×3 (00:13→17:55)
[2019-10-12] MEDS: Vancomycin 125 MG Cap PO SCH ×4 (00:18→17:53)
[2019-10-12] MEDS: Sodium Chloride 0.9% 1,000 ML IV SCH ×2 (05:30→09:24)
[2019-10-12] MEDS ORDERED: NACL 0.9% IV SCH (06:00)
[2019-10-12] MEDS ORDERED: [UNRECOGNIZED DRUG - OTHER] IV SCH (06:00)
[2019-10-12] MEDS ORDERED: CEFAZOLIN SODIUM IV SCH (06:00)
[2019-10-12 06:07] LABS: CARBON DIOXIDE,CO2 16.7 mmol/L (21.0-32.0); POTASSIUM,K 5.3 mmol/L (3.5-5.1)
[2019-10-12] MEDS ORDERED: Sodium Chloride 0.9% 1,000 ML IV ONE ×2 (07:56→15:55)
--- NOTE | 2019-10-12 08:54 | PCM.PN ---
- General Info Date of Service: 10/12/19 Admission Dx/Problem (Free Text): Admission Diagnosis/Problem Admission Diagnosis/Problem Colitis Subjective Update: No improvement overnight. Continues to have pain to abdomen with stools 5-7 overnight. No chest pain or SOB. Functional Status: Reports: Ambulating, Urinating. Denies: Pain Controlled, Tolerating Diet - Review of Systems General: Reports: Weakness, Fatigue, Malaise HEENT: Reports: No Symptoms. Denies: Headaches, Sore Throat Pulmonary: Reports: Shortness of Breath (when getting up, feels so weak and SOB) Cardiovascular: Reports: No Symptoms. Denies: Chest Pain Gastrointestinal: Reports: Abdominal Pain, Diarrhea, Nausea. Denies: Vomiting Genitourinary: Reports: No Symptoms. Denies: Dysuria, Frequency, Burning Skin: Reports: No Symptoms Neurological: Reports: No Symptoms Psychiatric: Reports: No Symptoms - Patient Data Vitals - Most Recent: Last Vital Signs Temp 97.7 F 10/12/19 07:00 Pulse 105 H 10/12/19 07:00 Resp 13 10/12/19 07:00 BP 96/57 L 10/12/19 07:00 Pulse Ox 95 10/12/19 07:00 Weight - Most Recent: 77.2 kg I&O - Last 24 Hours: Intake & Output 10/11/19 10/12/19 10/12/19 22:59 06:59 14:59 Intake Total 1980 Output Total 501 Balance 1479 Lab Results Last 24 Hours: Laboratory Results - last 24 hr 10/11/19 10/11/19 10/11/19 Range/Units 12:43 12:43 12:43 WBC 392.57 H (4.0-11.0) K/uL RBC 4.56 (4.50-5.90) M/uL Hgb 13.9 (13.0-17.0) g/dL Hct 47.5 (38.0-50.0) % MCV 104.2 H (80.0-98.0) fL MCH 30.5 (27.0-32.0) pg MCHC 29.3 L (31.0-37.0) g/dL RDW Std Deviation 55.0 (28.0-62.0) fl RDW Coeff of Vale 18 H (11.0-15.0) % Plt Count 164 (150-400) K/uL MPV 11.90 (7.40-12.00) fL Neut % (Auto) Lymph % (Auto) Add Manual Diff YES Neutrophils % (Manual) 1 L (48.0-80.0) % Band Neutrophils % 1 % Lymphocytes % (Manual) 97 H (16.0-40.0) % Monocytes % (Manual) 1 (0.0-15.0) % Nucleated RBC % 0.0 /100WBC Absolute Seg Neuts 3.9 (1.4-5.7) Band Neutrophils # 3.9 Lymphocytes # (Manual) 380.8 H (0.6-2.4) Monocytes # (Manual) 3.9 H (0.0-0.8) Nucleated RBCs # 0 K/uL Smudge Cells MODERATE Lactate 1.4 (0.20-2.00) mmol/L Sodium 127 L (136-148) mmol/L Potassium 6.2 H (3.5-5.1) mmol/L Chloride 95 L (98-107) mmol/L Carbon Dioxide 23.7 (21.0-32.0) mmol/L BUN 38 H (7.0-18.0) mg/dL Creatinine 1.8 H (0.8-1.3) mg/dL Est Cr Clr Drug Dosing 51.76 mL/min Estimated GFR (MDRD) 39.7 ml/min Glucose 146 H (74-106) mg/dL Calcium 8.3 L (8.5-10.1) mg/dL Magnesium (1.8-2.4) mg/dL Total Bilirubin 0.7 (0.2-1.0) mg/dL AST 21 (15-37) IU/L ALT 12 L (14-63) IU/L Alkaline Phosphatase 87 (46-116) U/L Total Protein 7.1 (6.4-8.2) g/dL Albumin 1.8 L (3.4-5.0) g/dL Globulin 5.3 H (2.6-4.0) g/dL Albumin/Globulin Ratio 0.3 L (0.9-1.6) Lipase 52 L (73-393) U/L Urine Color Urine Appearance Urine pH (5.0-8.0) Ur Specific [place] (1.001-1.035) Urine Protein (NEGATIVE) mg/dL Urine Glucose (UA) (NEGATIVE) mg/dL Urine Ketones (NEGATIVE) mg/dL Urine Occult Blood (NEGATIVE) Urine Nitrite (NEGATIVE) Urine Bilirubin (NEGATIVE) Urine Ictotest Urine Urobilinogen (<2.0) EU/dL Ur Leukocyte Esterase (NEGATIVE) Urine RBC (0-2/HPF) Urine WBC (0-5/HPF) Ur Epithelial Cells (NONE-FEW) Urine Bacteria (NEGATIVE) Urine Mucus (NONE-MOD) 10/11/19 10/11/19 10/12/19 Range/Units 14:56 21:18 05:13 WBC 435.22 H (4.0-11.0) K/uL RBC 4.44 L (4.50-5.90) M/uL Hgb 13.9 (13.0-17.0) g/dL Hct 46.9 (38.0-50.0) % MCV 105.6 H (80.0-98.0) fL MCH 31.3 (27.0-32.0) pg MCHC 29.6 L (31.0-37.0) g/dL RDW Std Deviation 55.1 (28.0-62.0) fl RDW Coeff of Vale 18 H (11.0-15.0) % Plt Count 109 L (150-400) K/uL MPV 13.00 H (7.40-12.00) fL Neut % (Auto) FINANCIAL DATA ANALYST Lymph % (Auto) Not Reportable Add Manual Diff YES Neutrophils % (Manual) (48.0-80.0) % Band Neutrophils % % Lymphocytes % (Manual) 100 H (16.0-40.0) % Monocytes % (Manual) (0.0-15.0) % Nucleated RBC % 0.0 /100WBC Absolute Seg Neuts (1.4-5.7) Band Neutrophils # Lymphocytes # (Manual) 435.2 H (0.6-2.4) Monocytes # (Manual) (0.0-0.8) Nucleated RBCs # 0 K/uL Smudge Cells SEVERAL Lactate (0.20-2.00) mmol/L Sodium 129 L (136-148) mmol/L Potassium 5.2 H (3.5-5.1) mmol/L Chloride 98 (98-107) mmol/L Carbon Dioxide 23.0 (21.0-32.0) mmol/L BUN 41 H (7.0-18.0) mg/dL Creatinine 1.9 H (0.8-1.3) mg/dL Est Cr Clr Drug Dosing 48.21 mL/min Estimated GFR (MDRD) 37.3 ml/min Glucose 141 H (74-106) mg/dL Calcium 8.1 L (8.5-10.1) mg/dL Magnesium (1.8-2.4) mg/dL Total Bilirubin (0.2-1.0) mg/dL AST (15-37) IU/L ALT (14-63) IU/L Alkaline Phosphatase (46-116) U/L Total Protein (6.4-8.2) g/dL Albumin (3.4-5.0) g/dL Globulin (2.6-4.0) g/dL Albumin/Globulin Ratio (0.9-1.6) Lipase (73-393) U/L Urine Color DARK YELLOW Urine Appearance CLEAR Urine pH 5.5 (5.0-8.0) Ur Specific [place] >= 1.030 (1.001-1.035) Urine Protein 100 H (NEGATIVE) mg/dL Urine Glucose (UA) NEGATIVE (NEGATIVE) mg/dL Urine Ketones NEGATIVE (NEGATIVE) mg/dL Urine Occult Blood TRACE-INTACT H (NEGATIVE) Urine Nitrite NEGATIVE (NEGATIVE) Urine Bilirubin SMALL H (NEGATIVE) Urine Ictotest NEGATIVE Urine Urobilinogen 0.2 (<2.0) EU/dL Ur Leukocyte Esterase NEGATIVE (NEGATIVE) Urine RBC 0-1 (0-2/HPF) Urine WBC 0-1 (0-5/HPF) Ur Epithelial Cells FEW (NONE-FEW) Urine Bacteria FEW (NEGATIVE) Urine Mucus LIGHT (NONE-MOD) 10/12/19 Range/Units 05:13 WBC (4.0-11.0) K/uL RBC (4.50-5.90) M/uL Hgb (13.0-17.0) g/dL Hct (38.0-50.0) % MCV (80.0-98.0) fL MCH (27.0-32.0) pg MCHC (31.0-37.0) g/dL RDW Std Deviation (28.0-62.0) fl RDW Coeff of Vale (11.0-15.0) % Plt Count (150-400) K/uL MPV (7.40-12.00) fL Neut % (Auto) Lymph % (Auto) Add Manual Diff Neutrophils % (Manual) (48.0-80.0) % Band Neutrophils % % Lymphocytes % (Manual) (16.0-40.0) % Monocytes % (Manual) (0.0-15.0) % Nucleated RBC % /100WBC Absolute Seg Neuts (1.4-5.7) Band Neutrophils # Lymphocytes # (Manual) (0.6-2.4) Monocytes # (Manual) (0.0-0.8) Nucleated RBCs # K/uL Smudge Cells Lactate (0.20-2.00) mmol/L Sodium 128 L (136-148) mmol/L Potassium 5.3 H (3.5-5.1) mmol/L Chloride 98 (98-107) mmol/L Carbon Dioxide 16.7 L (21.0-32.0) mmol/L BUN 48 H (7.0-18.0) mg/dL Creatinine 2.1 H (0.8-1.3) mg/dL Est Cr Clr Drug Dosing 43.62 mL/min Estimated GFR (MDRD) 33.2 ml/min Glucose 185 H (74-106) mg/dL Calcium 7.6 L (8.5-10.1) mg/dL Magnesium 2.0 (1.8-2.4) mg/dL Total Bilirubin (0.2-1.0) mg/dL AST (15-37) IU/L ALT (14-63) IU/L Alkaline Phosphatase (46-116) U/L Total Protein (6.4-8.2) g/dL Albumin (3.4-5.0) g/dL Globulin (2.6-4.0) g/dL Albumin/Globulin Ratio (0.9-1.6) Lipase (73-393) U/L Urine Color Urine Appearance Urine pH (5.0-8.0) Ur Specific [place] (1.001-1.035) Urine Protein (NEGATIVE) mg/dL Urine Glucose (UA) (NEGATIVE) mg/dL Urine Ketones (NEGATIVE) mg/dL Urine Occult Blood (NEGATIVE) Urine Nitrite (NEGATIVE) Urine Bilirubin (NEGATIVE) Urine Ictotest Urine Urobilinogen (<2.0) EU/dL Ur Leukocyte Esterase (NEGATIVE) Urine RBC (0-2/HPF) Urine WBC (0-5/HPF) Ur Epithelial Cells (NONE-FEW) Urine Bacteria (NEGATIVE) Urine Mucus (NONE-MOD) Jeanmarie Results Last 24 Hours: Microbiology 10/11/19 15:00 C. difficile Antigen & Toxins A,B - Final Stool / Feces Med Orders - Current: Current Medications Acetaminophen (Tylenol) 650 mg PO Q4H PRN PRN Reason: Pain (Mild 1-3)/fever Last Admin: 10/11/19 19:16 Dose: 650 mg Heparin Sodium (Porcine) (Heparin Sodium) 5,000 units SUBCUT Q8H [facility] Last Admin: 10/12/19 08:36 Dose: 5,000 units Sodium Chloride (Normal Saline) 1,000 mls @ 125 mls/hr IV Q8H [facility] Last Admin: 10/12/19 05:30 Dose: 125 mls/hr Sodium Chloride (Normal Saline) 1,000 mls @ 999 mls/hr IV .Bolus ONE Stop: 10/12/19 08:56 Last Admin: 10/12/19 08:39 Dose: 999 mls/hr Metronidazole 500 mg/ Premix 100 mls @ 100 mls/hr IV QID [facility] Cefazolin Sodium/Dextrose 2 gm (/ Premix) 50 mls @ 100 mls/hr IV TID [facility] Morphine Sulfate (Morphine) 4 mg IVPUSH Q2H PRN PRN Reason: Pain Ondansetron HCl (Zofran) 4 mg IVPUSH Q4H PRN PRN Reason: Nausea Prednisone (Prednisone) 60 mg PO DAILY [facility] Last Admin: 10/12/19 08:26 Dose: 60 mg Vancomycin HCl (Vancomycin) 125 mg PO QID [facility] Discontinued Medications Calcium Gluconate (Calcium Gluconate) 1 gm IVPUSH ONETIME ONE Stop: 10/11/19 16:38 Last Admin: 10/11/19 17:02 Dose: 1 gm Dextrose/Water (Dextrose 50% In Water) 50 ml IVPUSH ONETIME ONE Stop: 10/11/19 16:38 Last Admin: 10/11/19 17:03 Dose: 50 ml Sodium Chloride (Normal Saline) 1,000 mls @ 999 mls/hr IV BOLUS ONE Stop: 10/11/19 13:35 Last Admin: 10/11/19 13:02 Dose: 999 mls/hr Lactated Ringer's (Ringers, Lactated) 1,000 mls @ 999 mls/hr IV .BOLUS ONE Stop: 10/11/19 20:21 Last Admin: 10/11/19 19:56 Dose: 999 mls/hr Cefazolin Sodium 0.25 gm/ (Sodium Chloride) 100 mls @ 200 mls/hr IV Q8H [facility] Last Admin: 10/12/19 06:49 Dose: 200 mls/hr Insulin Human Regular (Novolin R) 10 unit IVPUSH ONETIME ONE Stop: 10/11/19 16:38 Last Admin: 10/11/19 17:00 Dose: 10 units Morphine Sulfate (Morphine) 2 mg IVPUSH Q2H PRN PRN Reason: Pain Last Admin: 10/12/19 00:11 Dose: 2 mg Non-Formulary Medication (Cefazolin Sodium In 0.9 % Nacl [Cefazolin 2 G/100 Ml- 0.9% Nacl]) 200 mg IV TID [facility] Last Admin: 10/12/19 02:09 Dose: Not Given Non-Formulary Medication (Cefazolin Sodium In 0.9 % Nacl [Cefazolin 2 G/100 Ml- 0.9% Nacl]) 250 mg IV TID [facility] Sodium Polystyrene Sulfonate (Kayexalate) 15 gm PO ONETIME ONE Stop: 10/11/19 19:24 Last Admin: 10/11/19 20:20 Dose: 15 gm Vancomycin HCl (Vancomycin) 125 mg PO QID [facility] Last Admin: 10/12/19 06:50 Dose: 125 mg - Exam General: Alert, Oriented, Cooperative Lungs: Clear to Auscultation, Normal Respiratory Effort Cardiovascular: Regular Rhythm, Tachycardia GI/Abdominal Exam: Soft, Tender. No: Normal Bowel Sounds, Distended Back Exam: Normal Inspection, Full Range of Motion Extremities: Normal Inspection, Normal Range of Motion, Non-Tender, No Pedal Edema Neurological: No New Focal Deficit Psy/Mental Status: Alert, Normal Affect, Normal Mood Sepsis Event Note - Evaluation Sepsis Screening Result: Sepsis Risk - Focused Exam Vital Signs: Vital Signs Temp Temp Pulse Resp BP Pulse Ox 10/12/19 07:00 97.7 F 105 H 13 96/57 L 95 10/12/19 03:27 97.4 F 106 H 18 91/59 L 96 10/12/19 00:00 99 F 104 H 18 94/68 95 Date Exam was Performed: 10/12/19 Time Exam was Performed: 09:37 - Problem List & Annotations (1) Clostridium difficile infection SNOMED Code(s): 882582215 Code(s): A49.8 - OTHER BACTERIAL INFECTIONS OF UNSPECIFIED SITE Status: Acute Current Visit: Yes (2) Pancolitis SNOMED Code(s): 915634179 Code(s): K51.00 - ULCERATIVE (CHRONIC) PANCOLITIS WITHOUT COMPLICATIONS Status: Acute Current Visit: Yes (3) BON (acute kidney injury) SNOMED Code(s): 13543189, 61955920 Code(s): N17.9 - ACUTE KIDNEY FAILURE, UNSPECIFIED Status: Acute Current Visit: Yes (4) Hyperkalemia SNOMED Code(s): 29541984 Code(s): E87.5 - HYPERKALEMIA Status: Acute Current Visit: Yes (5) Nausea and vomiting SNOMED Code(s): 26245574 Code(s): R11.2 - NAUSEA WITH VOMITING, UNSPECIFIED Status: Acute Current Visit: No Qualifiers: Vomiting type: unspecified Vomiting Intractability: non-intractable Qualified Code(s): R11.2 - Nausea with vomiting, unspecified (6) Hyponatremia SNOMED Code(s): 72716241 Code(s): E87.1 - HYPO-OSMOLALITY AND HYPONATREMIA Status: Acute Current Visit: Yes (7) Pneumonia SNOMED Code(s): 280010075 Code(s): J18.9 - PNEUMONIA, UNSPECIFIED ORGANISM Status: Acute Current Visit: Yes Qualifiers: Pneumonia type: due to unspecified organism Laterality: left Lung location: lower lobe of lung Qualified Code(s): J18.9 - Pneumonia, unspecified organism (8) CLL (chronic lymphocytic leukemia) SNOMED Code(s): 07974706 Code(s): C91.10 - CHRONIC LYMPHOCYTIC LEUK OF B-CELL TYPE NOT ACHIEVE REMIS Status: Chronic Current Visit: Yes - Problem List Review Problem List Initiated/Reviewed/Updated: Yes - My Orders Last 24 Hours: My Active Orders 10/11/19 16:39 Telemetry Monitoring [Cardiac Monitoring] [RC] Q8H 10/11/19 16:45 Sodium Chloride 0.9% [Normal Saline] 1,000 ml IV Q8H 10/11/19 16:57 Height and Weight [RC] DAILY May Shower [RC] ASDIRECTED Oxygen Therapy [RC] PRN Up With Assistance [RC] ASDIRECTED VTE/DVT Education [RC] Q12H Vital Signs [RC] Q4H CULTURE SPUTUM + SMEAR [] Stat Acetaminophen [Tylenol] 650 mg PO Q4H PRN Resuscitation Status Routine 10/11/19 17:00 Communication Order [RC] ROUTINE Heparin Sodium 5,000 units SUBCUT Q8H 10/11/19 18:12 Intake and Output Strict [RC] Q12H 10/12/19 07:56 Sodium Chloride 0.9% [Normal Saline] 1,000 ml IV .Bolus 10/12/19 08:38 Ondansetron [Zofran] 4 mg IVPUSH Q4H PRN 10/12/19 08:41 Morphine 4 mg IVPUSH Q2H PRN 10/12/19 08:51 metroNIDAZOLE/Normal Saline [Flagyl 500 MG in NS 100 ML] 500 mg Premix Bag 1 bag IV QID 10/12/19 08:53 ceFAZolin [Ancef] 2 gm Premix Bag 1 bag IV TID 10/12/19 09:00 predniSONE 60 mg PO DAILY 10/12/19 12:00 Vancomycin 125 mg PO QID 10/12/19 Breakfast Nothing Per Oral Diet [DIET] - Plan Plan:: This 53 year old male admitted with diffuse abdominal pain, diarrhea found to have Cdiff and BON 1. Cdiff colitis: Continued with 7 BMs overnight. Spoke with Dr Cobb, ID in [place] regarding patient, he recommended increasing Vanco to 250 mcg QID PO and adding Flagyl due to severity in disease. NPO with ice chips ok. IVFs for now. Other stool studies pending. Pain medications PRN as well as zofran PRN nausea. 2. BON: IVFs as above. Hold nephrotoxic medications. no improvement, slight increase, likely hypovolemia. Will give 1 L NS bolus this morning. 3. Hyperkalemia: 5.3 this morning, no telemetry changes. Will monitor this morning. 4. Hyponatremia: IVFs monitor for slow correction. likely secondary to diarrhea and dehydration 5. Hx MSSA bactermia and pyomyositis: Again, spoke with Dr. Dey recommendation to continue Cefazolin 2 gm TID. On a 28 day course with 10 days left. 6. CAP: Continue Cefazolin, patient reports this is loosing up and feeling improved. Duonebs PRN and sputum culture due to possible opportunistic infections with CLL and steroids. 7. CLL: Monitoring, Has been on Tapering Prednisone from Dr Hinton per records reviewed. VTE prophylaxis: Heparin Dispo: 2-3 days
[2019-10-12] MEDS ORDERED: predniSONE 20 MG Tab PO SCH (09:00)
[2019-10-12] MEDS: Ondansetron 4 MG/2 ML SDV IVPUSH PRN ×2 (09:29→19:10)
[2019-10-12] MEDS: Acetaminophen 325 MG Tab PO PRN ×2 (09:30→16:43)
[2019-10-12] MEDS: ceFAZolin 2 GM in Premix Bag 1 BAG IV SCH ×3 (09:37→23:53)
[2019-10-12] MEDS: metroNIDAZOLE/Normal Saline 500 MG in Premix Bag 1 BAG IV SCH ×2 (10:28→15:32)
[2019-10-12] MEDS ORDERED: Sodium Chloride 0.9% 1,000 ML IV SCH ×2 (11:16→16:15)
[2019-10-12] MEDS: Morphine 4 MG/ML Syringe IVPUSH PRN ×3 (11:43→20:24)
[2019-10-12] MEDS ORDERED: Vancomycin 125 MG Cap PO SCH (12:00)
[2019-10-12 15:16] LABS: POTASSIUM,K 5.6 mmol/L (3.5-5.1)
[2019-10-12] MEDS ORDERED: Sodium Bicarbonate 8.4% 50 MEQ/50 ML Syringe IVPUSH ONE (16:07)
[2019-10-12] MEDS: Lactated Ringers 1,000 ML IV SCH (16:51)
[2019-10-12] MEDS ORDERED: Lactated Ringers 2,000 ML IV ONE (20:31)
--- NOTE | 2019-10-12 23:18 | US ---
Renal ultrasound: Multiple real-time images of the kidneys were obtained. Small amount of ascites is seen within the abdomen. Kidneys show no hydronephrosis or mass. Right kidney length is 10.0 cm and left kidney length is 10.7 cm. Prevoid bladder volume is 39 mL. No postvoid bladder volume was obtained. Impression: 1. Small amount of ascites within the abdomen. 2. Renal ultrasound is otherwise unremarkable. Diagnostic code #2 This report was dictated in [place] Standard Time
[2019-10-13] MEDS ORDERED: Lactated Ringers 2,000 ML IV ONE (00:44)
[2019-10-13] MEDS ORDERED: Piperacillin/Tazobactam 3.375 GM in Sodium Chloride 0.9% 100 ML IV SCH (01:00)
[2019-10-13] MEDS ORDERED: Vancomycin 2 GM in Sodium Chloride 0.9% 500 ML IV ONE (01:00)
[2019-10-13 01:32] LABS: POTASSIUM,K 6.7 mmol/L (3.5-5.1)
[2019-10-13] MEDS ORDERED: Midazolam 1 MG/ML 2 ML SDV ONE ×3 (01:32→02:29)
[2019-10-13] MEDS ORDERED: Succinylcholine 200 MG/10 ML MDV IV ONE (01:34)
[2019-10-13] MEDS ORDERED: Calcium Gluconate 10% 1 GM/10 ML SDV IVPUSH ONE (01:38)
[2019-10-13] MEDS ORDERED: Insulin Regular, Human 100 Units/ML 10 ML Vial IVPUSH ONE (01:39)
[2019-10-13] MEDS ORDERED: 50% Dextrose in Water 50 ML Syringe IVPUSH ONE (01:40)
[2019-10-13] MEDS: metroNIDAZOLE/Normal Saline 500 MG in Premix Bag 1 BAG IV SCH ×4 (02:13→04:14)
--- NOTE | 2019-10-13 02:22 | PCM.SN ---
- Free Text/Narrative Note: Lactic acid was ordered due to concern of sepsis vs mesenteric ischemia, lactic acid came back 4.8, BP was stable, patient physical exam was unchanged from AM, patient received IVF resuscitation , antibiotics were continued, , over next few hours Patients BP dropped to SBP 70s, repeat Lactic acid double to 8.2, patient was received 2 more IVF bolus of LR and was started on broad spectrum antibiotics, and transferred to ICU order was put in, during the transfer patient became increasingly short of breath, patient was intubated and started on Levophed via Picc line, Labs revealed hyperkalemia, worsening BON, , patient received IV insulin, IV calcium for cardiac membrane stabilization. Patient was eventually transferred to ICU. CT abdomen was obtained , showed no perforation, but did show new infiltrate in left upper lobe, A-line in place. Patient is accepted at [facility] ER for further management of septic shock. Family informed about updates and aware about grave prognosis.
--- NOTE | 2019-10-13 02:25 | CR ---
Indication: Intubation Technique: Chest 1 view Comparison: October 11, 2019 Findings/Impression: Endotracheal tube tip terminates 1.2 cm above the level of the adebayo. Right-sided PICC tip terminates at the level of the cavoatrial junction. Faint patchy opacities in both lung bases may be due to atelectasis or infection. Stable cardiac size. Dictated by Cristy Valdivia MD @ Oct 13 2019 2:23AM Signed by Dr. Cristy Valdivia @ Oct 13 2019 2:23AM
--- NOTE | 2019-10-13 02:55 | CT ---
INDICATION: Abdominal pain and distension TECHNIQUE: CT abdomen and pelvis without contrast. COMPARISON: October 11, 2019 FINDINGS: Lower chest: Interval increase in atelectasis or infiltrate in both lower lobes. New ground-glass opacity in left upper lobe ground-glass opacity in the left upper lobe. Liver: Punctate calcified granulomata. Spleen: Punctate calcified granulomata. Pancreas: Unremarkable. Gallbladder and bile ducts: Unremarkable. Adrenal glands: Unremarkable. Kidneys: Nonobstructive bilateral nephrolithiasis. GI tract: Slight interval increase in degree of diffuse colonic wall thickening. No extraluminal air or pneumatosis. Interval increase in amount free fluid, now small to moderate. Stable pericolonic fat stranding. No bowel obstruction. Small bowel is normal in appearance. There is colonic diverticulosis. Vascular structures: Unremarkable. Lymph nodes: Stable periaortic adenopathy. Pelvic Organs: Unremarkable. Bones: Unremarkable for age. IMPRESSION: Slight interval increase in diffuse colonic wall thickening consistent with worsening colitis. C difficile colitis should be considered. Interval increase in free fluid throughout the abdomen and pelvis. Interval increase in atelectasis or infiltrate in both lower lobes with new infiltrate in the left upper lobe concerning for infection. Periaortic adenopathy may be reactive but follow-up CT after the patient`s acute illness has resolved is recommended. Colonic diverticulosis. Nonobstructive bilateral nephrolithiasis. Please note that all CT scans at this facility use dose modulation, iterative reconstruction, and/or weight-based dosing when appropriate to reduce radiation dose to as low as reasonably achievable. Dictated by Cristy Valdivia MD @ Oct 13 2019 2:47AM Signed by Dr. Cristy Valdivia @ Oct 13 2019 2:52AM
[2019-10-13] MEDS: Vancomycin 125 MG Cap PO SCH ×2 (03:12→06:06)
[2019-10-13] MEDS ORDERED: Sodium Bicarbonate 8.4% 50 MEQ/50 ML Syringe IVPUSH ONE ×2 (03:14→04:10)
[2019-10-13] MEDS ORDERED: Hydrocortisone Sodium Succinate 100 MG/2 ML SDV IV SCH (03:15)
--- NOTE | 2019-10-13 03:21 | PN ---
THC Physician - Brief Progress [id number]/29/2020 03:16[facility] Sommer Carney, REINA - FR[facility]DYN (JOS[place] LUIS) - [facility]DY[place] ICUMEETALIZZ JAGDISH R.Date of Service 10/13/2019 03:16HPI/Events of Note Brief eICU Admit [id number] yo with hx of CLL, recent cellulitis of R thigh Presents with diar melinda / C diff colitisNow profoundly hypotensive - transferred to ICUO/E Seen on cameraHypotensive Int ubatedIssuesSeptic Shock - unclear etiology - tissue ischemia / perf not apparent on the stat CT abdo men that was doneC diff colitisAKIHyperkalemia2 amps of bicarbFluidsVasopressors (levophed - add vaso )Acute respiratory failure tdue to profound met acidosisIncrease Minute volume on the vent to met licha tilatory needsRepeat ABGGrave prognosisDiscussed with at bedsideAll questions answeredCase revi ewed with bedside teamCall with questionsWill followInterventions Major-Sepsis - evaluation and manag ement, Shock - evaluation and managementElectronically Signed by: SORAYA BORDEN) on 2019 03:20
[2019-10-13] MEDS ORDERED: fentaNYL 100 MCG/2 ML SDV ONE (03:42)
[2019-10-13] MEDS: Lactated Ringers 1,000 ML IV SCH ×2 (04:09→05:55)
[2019-10-13] MEDS ORDERED: fentaNYL 50 MCG/ML SDV IVPUSH PRN (04:10)
[2019-10-13] MEDS ORDERED: fentaNYL 100 MCG/2 ML SDV IVPUSH PRN (04:15)
[2019-10-13] MEDS ORDERED: Sodium Chloride 0.9% 10 ML SDV IV ONE (04:15)
[2019-10-13] MEDS ORDERED: Sodium Bicarbonate 100 MEQ in Dextrose 5% in Water 100 ML IV ONE ×2 (04:47)
[2019-10-13] MEDS ORDERED: SODIUM BICARBONATE IV ONE ×2 (05:00)
[2019-10-13] MEDS ORDERED: WATER IV ONE ×2 (05:00)
[2019-10-13] MEDS ORDERED: DEXTROSE 5% IV ONE ×2 (05:00)
--- NOTE | 2019-10-13 05:00 | PCM.SN ---
- Free Text/Narrative Note: 10/13/2019 [id number]: Called to Med/surg room 209 for patient in respiratory distress and need for intubation. Staff was having difficulty getting O2 saturations and BP was low. See nursing notes for vital signs. Patient color was dusky with a non-rebreather mask on. Instructed RT to assist with Bag Mask breathing until Intubation and meds ready. Patient was responsive and clearly in respiratory distress. Suction on at bedside. Glidescope Go utilized. IV Succinylcholine 140 mg and 4 mg Versed given for intubation. DL X 1 with glidescope go size 3 blade. Oral suctioned for coffee ground secretions in oropharynx. 8.0 ETT placed without incident. + ETCO2 detected with color change , + Bilateral breath sounds auscultated by RT & no audible gastric noises auscultated. ETT secured at 25 at the teeth. Chest X-ray was taken and confirmed ETT placement. Manual ventilated patient with Bag Valve via ETT utilizing 10L of oxygen. Order from physician for CT Scan. Assisted in transport managing airway to CT with patient monitored. Patient was on levophed at this point. Closely monitored vitals, difficulty getting an accurate O2 saturation reading despite multiple avenues attempted. Patient color pink. After CT scan, transported Patient to ICU. Tele conference CCRN and MD available as well as Dr. Morrissey present. Assisted in getting A-line utilizing ultra sound. Unable to obtain access to left radial. Obtained Left brachial, good flow, good wave form initally then no wave and unable to draw back blood from titi. Placed right radial utilizing ultra sound without incident. Poor reading, wave form small, questioning if so clamped down from pressors that couldn't obtain adequate reading. Does not correlate with NIBP. See IV Vitals signs for details. Discussed with Dr. Morrissey thoughts. No long A-line catheters in facility but attempted left brachial artery again proximal to previous attempt again using ultrasound and was successful. BP reading quite low. ABGs were drawn and medical management continued from Dr. Morrissey and the e -ICU MD and CCRN. Attempted to obtain further IV access but with failed attempts using ultrasound. Patient's family with patient at bedside in the ICU.
[2019-10-13] MEDS: Heparin Sodium 5,000 Units/ML Vial SUBCUT SCH (05:21)
[2019-10-13] MEDS ORDERED: Sodium Bicarbonate 150 MEQ in Dextrose 5% in Water 1,000 ML IV ONE ×2 (06:17)
--- NOTE | 2019-10-13 06:23 | PN ---
THC Physician - Brief Progress [id number]/29/2020 03:16[facility] - [facility] ([place] [place]) - MWN ICUKIMOJAGDISH HARRISTaeDate of Service 10/13/2019 03:16HPI/Events of Note Brief eICU Admit [id number] yo with hx of CLL, recent cellulitis of R thigh Presents with diar melinda / C diff colitisNow profoundly hypotensive - transferred to ICUO/E Seen on cameraHypotensive Int ubatedIssuesSeptic Shock - unclear etiology - tissue ischemia / perf not apparent on the stat CT abdo men that was doneC diff colitisAKIHyperkalemia2 amps of bicarbFluidsVasopressors (levophed - add vaso )Acute respiratory failure tdue to profound met acidosisIncrease Minute volume on the vent to met licha tilatory needsRepeat ABGGrave prognosisDiscussed with at bedsideAll questions answeredCase revi ewed with bedside teamCall with questionsWill followInterventions Major-Sepsis - evaluation and manag ement, Shock - evaluation and managementElectronically Signed by: SORAYA BORDEN) on 2019 03:20Annotated By: SORAYA BORDEN) Date: 10/13/19 06:22ABG reviewedIncrease Minute volumeAdd bicarb drip
[2019-10-13] MEDS ORDERED: Sodium Bicarbonate 150 MEQ in Dextrose 5% in Water 1,000 ML IV SCH ×2 (06:30)
[2019-10-13 06:32] LABS: CARBON DIOXIDE,CO2 11.4 mmol/L (21.0-32.0); POTASSIUM,K 5.9 mmol/L (3.5-5.1)
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
[2019-10-13] MEDS ORDERED: Pantoprazole 40 MG in Sodium Chloride 0.9% 10 ML IV SCH (09:00)
--- NOTE | 2019-10-13 11:14 | PCM.DCSUM1 ---
Discharge Summary - Hospital Course Brief History: This 53 year old male with pmh of CLL recent staph infection to R thigh with ongoing IV Cefazolin order by ID in [place]. He reports he started having explosive diarrhea 3-4 days ago, has been trying to keep it at bay with Imodium without a lot of success. He is having diffuse abdominal pain with mild nausea. He was also recently diagnosed with L lower lobe pneumonia, but no added treatment besides keeping with Cefazolin. He reports mild fevers/chills at home. No chest pain or SOB. No urinary concerns. Stools are watery and mucous , brown in color no black or bloody stool noted. He reports he has been on steroids 60 mg daily for CLL for the last 3-4 months, no other treatment that he is aware of, Will obtain last clinic note from Dr Hinton. He denies tobacco use no alcohol use and no recreational drug use. In the ED leukocytosis noted at 390,000,m baseline is mid 200,000. Hgb 13, platelets 164,000, Na 127, K+ 6.2 , Cl 95, BUN 38, Cr 1.8. CT abdomen revealed diffuse pancolitis without perforation or abscess noted, worse in ascending colon and cecum. along with patchy opacity to L lower lobe. He was given IVFs in the ED. EKG showed peaked T waves, tachycardia no ST elevation. - Discharge Data Discharge Date: 10/13/19 Discharge Disposition: 20 Condition: - Referral to Home Health Primary Care Physician: Nayely Calix NP - Discharge Diagnosis/Problem(s) (1) Clostridium difficile infection SNOMED Code(s): 430979048 ICD Code: A49.8 - OTHER BACTERIAL INFECTIONS OF UNSPECIFIED SITE Status: Acute (2) Pancolitis SNOMED Code(s): 505699331 ICD Code: K51.00 - ULCERATIVE (CHRONIC) PANCOLITIS WITHOUT COMPLICATIONS Status: Acute (3) BON (acute kidney injury) SNOMED Code(s): 02691504, 59411499 ICD Code: N17.9 - ACUTE KIDNEY FAILURE, UNSPECIFIED Status: Acute (4) Hyperkalemia SNOMED Code(s): 41749556 ICD Code: E87.5 - HYPERKALEMIA Status: Acute (5) Nausea and vomiting SNOMED Code(s): 88176380 ICD Code: R11.2 - NAUSEA WITH VOMITING, UNSPECIFIED Status: Acute Qualifiers: Vomiting type: unspecified Vomiting Intractability: non-intractable Qualified Code(s): R11.2 - Nausea with vomiting, unspecified (6) Hyponatremia SNOMED Code(s): 36123769 ICD Code: E87.1 - HYPO-OSMOLALITY AND HYPONATREMIA Status: Acute (7) Pneumonia SNOMED Code(s): 146312323 ICD Code: J18.9 - PNEUMONIA, UNSPECIFIED ORGANISM Status: Acute Qualifiers: Pneumonia type: due to unspecified organism Laterality: left Lung location: lower lobe of lung Qualified Code(s): J18.9 - Pneumonia, unspecified organism (8) CLL (chronic lymphocytic leukemia) SNOMED Code(s): 65421115 ICD Code: C91.10 - CHRONIC LYMPHOCYTIC LEUK OF B-CELL TYPE NOT ACHIEVE REMIS Status: Chronic - Discharge Plan Home Medications: Home Meds Folic Acid 10 mg PO DAILY 09/17/19 [History] Omeprazole 40 mg PO DAILY 09/17/19 [History] predniSONE 60 mg PO DAILY 09/17/19 [History] ceFAZolin Sodium In 0.9 % NaCl [Cefazolin 2 G/100 ml-0.9% NaCl] 200 mg IV TID [History] - Discharge Summary/Plan Comment DC Time >30 min.: No Discharge Summary/Plan Comment: Cause of : Septic shock Multi-organ failure Admitting Diagnoses: Cdiff Pancolitis BON Hyperkalemia Hyponatremia Immunocompromised state Other PMH: CLL Recent MSSA bacteremia- still receiving IV therapy dx early Sep 2019 Pyomyositis R thigh s/p I&D with MSSA bacteremia Jose Miguel was admitted due pancolitis due to cdiff. He had 4 days of explosive diarrhea at home, taking Imodium to help stools. He starting having incontinence and not feeling well which brought him to the ED. He had been receiving Cefazolin 2 gm IV TID for MSSA bacteremia and recent pyomyositis in which he was in [place] and following with ID. On admission, he was started on Vancomycin 125 mcg PO QID for Cdiff and give IV boluses for hydration and kept on IVFS for maintenance. lactic acid normal on admission. CT revealed pancolitis with no perforation or free air. In the morning, day 2 of admission BON worsened slightly, diarrhea continues 5-[address] Dey ID was contacted. We discussed patient status and worsening BON. He recommended increasing Vancomycin to 250 mcg PO QID and adding Flagyl. He felt this patient was very high risk for Cdiff due to recent and current halfway antibiotic therapy as well as immunocompromised state with CLL and prednisone use. Given 1 L NS bolus in am along with increasing maintenance fluids to NS 150 mls/hr. Pain had improved slightly to abdomen. During the day BP remained stable, 95-115 /60s, which is patients baseline per Oncology and outpatient notes. Repeat BMP obtained in afternoon due to hyperkalemia, K+ remained 5.6 no ECG changes. BUN/ CR elevated again. NS 1 L bolus given and again IVFs increased to LR 200 mls/ hr. BP remained stable 110s SBP. Dr Morrissey was notified of BMP and agreed with bolus and increasing fluids. In the evening lactic acid obtained due to hypotension. This returned at 4.8, Dr Morrissey notified. 2 L LR boluses given at this time. Patient developed respiratory distress, rapid response called and Dr Morrissey in room. Patient continued to decline with worsening lactic acid to 8. Patient then developed hypotension and transferred to ICU. patient was intubated and started on Levophed via PICC line. Repeat labwork revealed worsening BON, overwhelming metabolic acidosis. CT abdomen was repeated which showed no perforation of intestines, but did show new left upper lobe infiltrate. Arterial line placed. EICU consulted and spoke with family. Continued to have profound hypotension with Levophed and IVFs, added Vasopressin. Dr Morrissey discussed grave prognosis with and daughter. Transfer was arranged to [facility] in [place], but due to fog flight was not available until morning. Patient went into asystole and code blue called around 0700. Chest compressions started, Epinephrine 1mg given no response. Dr Barrett ED physician present for code. Code called and time of noted 704. Dr Morrissey notified, family at bedside. - Patient Data Vitals - Most Recent: Last Vital Signs Temp 96 F 10/13/19 02:30 Pulse 97 10/13/19 00:24 Resp 33 H 10/13/19 06:00 BP 138/79 10/13/19 06:00 Pulse Ox 91 L 10/13/19 04:00 Weight - Most Recent: 77.2 kg I&O - Last 24 hours: Intake & Output 10/12/19 10/13/19 10/13/19 22:59 06:59 14:59 Intake Total 2500 587 Output Total 300 Balance 2200 587 Lab Results - Last 24 hrs: Laboratory Results - last 24 hr 10/12/19 10/12/19 10/12/19 Range/Units 14:53 19:08 23:58 WBC (4.0-11.0) K/uL RBC (4.50-5.90) M/uL Hgb (13.0-17.0) g/dL Hct (38.0-50.0) % MCV (80.0-98.0) fL MCH (27.0-32.0) pg MCHC (31.0-37.0) g/dL RDW Std Deviation (28.0-62.0) fl RDW Coeff of Vale (11.0-15.0) % Plt Count (150-400) K/uL MPV (7.40-12.00) fL Add Manual Diff Neutrophils % (Manual) (48.0-80.0) % Band Neutrophils % % Lymphocytes % (Manual) (16.0-40.0) % Monocytes % (Manual) (0.0-15.0) % Nucleated RBC % /100WBC Absolute Seg Neuts (1.4-5.7) Band Neutrophils # Lymphocytes # (Manual) (0.6-2.4) Monocytes # (Manual) (0.0-0.8) Nucleated RBCs # K/uL Smudge Cells ABG pH (7.35-7.45) ABG pCO2 (35-45) mmHG ABG pO2 (75-100) mmHG ABG HCO3 (22-26) mEq/L ABG Total CO2 ABG Base Excess (-2.0-2.0) Lactate 4.8 H* 8.2 H* (0.20-2.00) mmol/L Sodium 130 L (136-148) mmol/L Potassium 5.6 H (3.5-5.1) mmol/L Chloride 99 (98-107) mmol/L Carbon Dioxide 16.0 L (21.0-32.0) mmol/L BUN 56 H (7.0-18.0) mg/dL Creatinine 2.4 H (0.8-1.3) mg/dL Est Cr Clr Drug Dosing 38.87 mL/min Estimated GFR (MDRD) 28.5 ml/min Glucose 195 H (74-106) mg/dL Calcium 7.3 L (8.5-10.1) mg/dL Phosphorus (2.6-4.7) mg/dL Magnesium (1.8-2.4) mg/dL Total Bilirubin (0.2-1.0) mg/dL AST (15-37) IU/L ALT (14-63) IU/L Alkaline Phosphatase (46-116) U/L Total Protein (6.4-8.2) g/dL Albumin (3.4-5.0) g/dL Globulin (2.6-4.0) g/dL Albumin/Globulin Ratio (0.9-1.6) 10/13/19 10/13/19 10/13/19 Range/Units 01:05 01:05 01:48 WBC 424.63 H (4.0-11.0) K/uL RBC 4.17 L (4.50-5.90) M/uL Hgb 13.0 (13.0-17.0) g/dL Hct 45.5 (38.0-50.0) % MCV 109.1 H (80.0-98.0) fL MCH 31.2 (27.0-32.0) pg MCHC 28.6 L (31.0-37.0) g/dL RDW Std Deviation 58.4 (28.0-62.0) fl RDW Coeff of Vale 19 H (11.0-15.0) % Plt Count 66 L (150-400) K/uL MPV 13.00 H (7.40-12.00) fL Add Manual Diff YES Neutrophils % (Manual) 0 L (48.0-80.0) % Band Neutrophils % 0 % Lymphocytes % (Manual) 96 H (16.0-40.0) % Monocytes % (Manual) 4 (0.0-15.0) % Nucleated RBC % 0.0 /100WBC Absolute Seg Neuts 0.0 L (1.4-5.7) Band Neutrophils # 0 Lymphocytes # (Manual) 407.6 H (0.6-2.4) Monocytes # (Manual) 17.0 H (0.0-0.8) Nucleated RBCs # 0 K/uL Smudge Cells MODERATE ABG pH 6.904 L* (7.35-7.45) ABG pCO2 33 L (35-45) mmHG ABG pO2 130 H (75-100) mmHG ABG HCO3 6 L (22-26) mEq/L ABG Total CO2 6.8 ABG Base Excess -25.5 L (-2.0-2.0) Lactate (0.20-2.00) mmol/L Sodium 131 L (136-148) mmol/L Potassium 6.7 H (3.5-5.1) mmol/L Chloride 100 (98-107) mmol/L Carbon Dioxide 12.0 L (21.0-32.0) mmol/L BUN 67 H (7.0-18.0) mg/dL Creatinine 3.5 H (0.8-1.3) mg/dL Est Cr Clr Drug Dosing 26.65 mL/min Estimated GFR (MDRD) 18.4 ml/min Glucose 245 H (74-106) mg/dL Calcium 6.8 L (8.5-10.1) mg/dL Phosphorus (2.6-4.7) mg/dL Magnesium (1.8-2.4) mg/dL Total Bilirubin 0.3 (0.2-1.0) mg/dL AST 45 H (15-37) IU/L ALT 12 L (14-63) IU/L Alkaline Phosphatase 105 (46-116) U/L Total Protein 4.8 L (6.4-8.2) g/dL Albumin 1.0 L (3.4-5.0) g/dL Globulin 3.8 (2.6-4.0) g/dL Albumin/Globulin Ratio 0.3 L (0.9-1.6) 10/13/19 10/13/19 10/13/19 Range/Units 03:29 05:48 05:48 WBC (4.0-11.0) K/uL RBC (4.50-5.90) M/uL Hgb (13.0-17.0) g/dL Hct (38.0-50.0) % MCV (80.0-98.0) fL MCH (27.0-32.0) pg MCHC (31.0-37.0) g/dL RDW Std Deviation (28.0-62.0) fl RDW Coeff of Vale (11.0-15.0) % Plt Count (150-400) K/uL MPV (7.40-12.00) fL Add Manual Diff Neutrophils % (Manual) (48.0-80.0) % Band Neutrophils % % Lymphocytes % (Manual) (16.0-40.0) % Monocytes % (Manual) (0.0-15.0) % Nucleated RBC % /100WBC Absolute Seg Neuts (1.4-5.7) Band Neutrophils # Lymphocytes # (Manual) (0.6-2.4) Monocytes # (Manual) (0.0-0.8) Nucleated RBCs # K/uL Smudge Cells ABG pH 6.894 L* 6.989 L* (7.35-7.45) ABG pCO2 34 L 43 (35-45) mmHG ABG pO2 82 73 L (75-100) mmHG ABG HCO3 7 L 10 L (22-26) mEq/L ABG Total CO2 6.9 10.8 ABG Base Excess -25.7 L -20.2 L (-2.0-2.0) Lactate 14.1 H* (0.20-2.00) mmol/L Sodium (136-148) mmol/L Potassium (3.5-5.1) mmol/L Chloride (98-107) mmol/L Carbon Dioxide (21.0-32.0) mmol/L BUN (7.0-18.0) mg/dL Creatinine (0.8-1.3) mg/dL Est Cr Clr Drug Dosing mL/min Estimated GFR (MDRD) ml/min Glucose (74-106) mg/dL Calcium (8.5-10.1) mg/dL Phosphorus (2.6-4.7) mg/dL Magnesium (1.8-2.4) mg/dL Total Bilirubin (0.2-1.0) mg/dL AST (15-37) IU/L ALT (14-63) IU/L Alkaline Phosphatase (46-116) U/L Total Protein (6.4-8.2) g/dL Albumin (3.4-5.0) g/dL Globulin (2.6-4.0) g/dL Albumin/Globulin Ratio (0.9-1.6) 10/13/19 10/13/19 Range/Units 05:50 05:55 WBC 389.21 H (4.0-11.0) K/uL RBC 3.25 L (4.50-5.90) M/uL Hgb 10.1 L (13.0-17.0) g/dL Hct 37.0 L (38.0-50.0) % MCV 113.8 H (80.0-98.0) fL MCH 31.1 (27.0-32.0) pg MCHC 27.3 L (31.0-37.0) g/dL RDW Std Deviation 60.8 (28.0-62.0) fl RDW Coeff of Vale 18 H (11.0-15.0) % Plt Count 19 L (150-400) K/uL MPV (7.40-12.00) fL Add Manual Diff YES Neutrophils % (Manual) 1 L (48.0-80.0) % Band Neutrophils % 1 % Lymphocytes % (Manual) 96 H (16.0-40.0) % Monocytes % (Manual) 2 (0.0-15.0) % Nucleated RBC % 0.0 /100WBC Absolute Seg Neuts 3.9 (1.4-5.7) Band Neutrophils # 3.9 Lymphocytes # (Manual) 373.6 H (0.6-2.4) Monocytes # (Manual) 7.8 H (0.0-0.8) Nucleated RBCs # 0 K/uL Smudge Cells MANY ABG pH (7.35-7.45) ABG pCO2 (35-45) mmHG ABG pO2 (75-100) mmHG ABG HCO3 (22-26) mEq/L ABG Total CO2 ABG Base Excess (-2.0-2.0) Lactate (0.20-2.00) mmol/L Sodium 139 (136-148) mmol/L Potassium 5.9 H (3.5-5.1) mmol/L Chloride 105 (98-107) mmol/L Carbon Dioxide 11.4 L (21.0-32.0) mmol/L BUN 56 H (7.0-18.0) mg/dL Creatinine 3.7 H (0.8-1.3) mg/dL Est Cr Clr Drug Dosing 25.21 mL/min Estimated GFR (MDRD) 17.3 ml/min Glucose 169 H (74-106) mg/dL Calcium 6.5 L (8.5-10.1) mg/dL Phosphorus 13.9 H (2.6-4.7) mg/dL Magnesium 2.4 (1.8-2.4) mg/dL Total Bilirubin (0.2-1.0) mg/dL AST (15-37) IU/L ALT (14-63) IU/L Alkaline Phosphatase (46-116) U/L Total Protein (6.4-8.2) g/dL Albumin (3.4-5.0) g/dL Globulin (2.6-4.0) g/dL Albumin/Globulin Ratio (0.9-1.6) [facility] Results - Last 24 hrs: Microbiology 10/12/19 11:56 Gram Stain - Final Sputum - Expectorated Sputum Culture - Preliminary 10/11/19 15:00 Shiga Toxin I & II - Final Stool / Feces 10/11/19 15:00 Cryptosporidium/Giardia - Final Stool / Feces 10/13/19 05:55 Anaerobic Blood Culture - Final Blood - Venous - Lab Draw 10/11/19 13:05 Aerobic Blood Culture - Preliminary Blood - Venous - Lab Draw NO GROWTH AFTER 1 DAY Anaerobic Blood Culture - Preliminary NO GROWTH AFTER 1 DAY 10/11/19 12:55 Aerobic Blood Culture - Preliminary Blood - Venous NO GROWTH AFTER 1 DAY Anaerobic Blood Culture - Preliminary NO GROWTH AFTER 1 DAY Med Orders - Current: Current Medications Discontinued Medications Acetaminophen (Tylenol) 650 mg PO Q4H PRN PRN Reason: Pain (Mild 1-3)/fever Last Admin: 10/12/19 16:43 Dose: 650 mg Calcium Gluconate (Calcium Gluconate) 1 gm IVPUSH ONETIME ONE Stop: 10/11/19 16:38 Last Admin: 10/11/19 17:02 Dose: 1 gm Calcium Gluconate (Calcium Gluconate) 1 gm IVPUSH ONETIME ONE Stop: 10/13/19 01:39 Last Admin: 10/13/19 01:58 Dose: 1 gm Dextrose/Water (Dextrose 50% In Water) 50 ml IVPUSH ONETIME ONE Stop: 10/11/19 16:38 Last Admin: 10/11/19 17:03 Dose: 50 ml Dextrose/Water (Dextrose 50% In Water) 50 ml IVPUSH ONETIME ONE Stop: 10/13/19 01:41 Last Admin: 10/13/19 01:59 Dose: 50 ml Fentanyl (Sublimaze) Confirm Administered Dose 100 mcg .ROUTE .STK-MED ONE Stop: 10/13/19 03:43 Last Admin: 10/13/19 03:48 Dose: 100 mcg Fentanyl (Fentanyl) 50 mcg IVPUSH Q2H PRN PRN Reason: Abdominal Pain Fentanyl (Sublimaze) 50 mcg IVPUSH Q2H PRN PRN Reason: Abdominal Pain Heparin Sodium (Porcine) (Heparin Sodium) 5,000 units SUBCUT Q8H [facility] Last Admin: 10/13/19 05:21 Dose: Not Given Hydrocortisone Sodium Succinate (Solu-Cortef) 100 mg IV Q6H [facility] Last Admin: 10/13/19 04:59 Dose: 100 mg Sodium Chloride (Normal Saline) 1,000 mls @ 999 mls/hr IV BOLUS ONE Stop: 10/11/19 13:35 Last Admin: 10/11/19 13:02 Dose: 999 mls/hr Sodium Chloride (Normal Saline) 1,000 mls @ 125 mls/hr IV Q8H [facility] Last Admin: 10/12/19 09:24 Dose: 125 mls/hr Lactated Ringer's (Ringers, Lactated) 1,000 mls @ 999 mls/hr IV .BOLUS ONE Stop: 10/11/19 20:21 Last Admin: 10/11/19 19:56 Dose: 999 mls/hr Cefazolin Sodium 0.25 gm/ (Sodium Chloride) 100 mls @ 200 mls/hr IV Q8H [facility] Last Admin: 10/12/19 06:49 Dose: 200 mls/hr Sodium Chloride (Normal Saline) 1,000 mls @ 999 mls/hr IV .Bolus ONE Stop: 10/12/19 08:56 Last Admin: 10/12/19 08:39 Dose: 999 mls/hr Metronidazole 500 mg/ Premix 100 mls @ 100 mls/hr IV Q6H [facility] Last Admin: 10/13/19 04:14 Dose: Not Given Cefazolin Sodium/Dextrose 2 gm (/ Premix) 50 mls @ 100 mls/hr IV TID [facility] Last Admin: 10/12/19 23:53 Dose: 100 mls/hr Sodium Chloride (Normal Saline) 1,000 mls @ 150 mls/hr IV Q6H [facility] Last Admin: 10/12/19 11:53 Dose: 150 mls/hr Sodium Chloride (Normal Saline) 1,000 mls @ 999 mls/hr IV .Bolus ONE Stop: 10/12/19 16:55 Last Admin: 10/12/19 17:08 Dose: 999 mls/hr Sodium Chloride (Normal Saline) 1,000 mls @ 200 mls/hr IV Q5H [facility] Lactated Ringer's (Ringers, Lactated) 1,000 mls @ 200 mls/hr IV Q5H [facility] Last Admin: 10/13/19 05:55 Dose: 200 mls/hr Lactated Ringer's (Ringers, Lactated) 2,000 mls @ 999 mls/hr IV .BOLUS ONE Stop: 10/12/19 22:31 Last Admin: 10/12/19 20:49 Dose: 999 mls/hr Lactated Ringer's (Ringers, Lactated) 2,000 mls @ 999 mls/hr IV .BOLUS ONE Stop: 10/13/19 02:44 Last Admin: 10/13/19 01:01 Dose: 999 mls/hr Piperacillin Sod/Tazobactam (Sod 3.375 gm/ Sodium Chloride) 100 mls @ 100 mls/ hr IV Q6H [facility] Last Admin: 10/13/19 05:01 Dose: 100 mls/hr Pantoprazole Sodium 40 mg/ (Sodium Chloride) 10 mls @ 300 mls/hr IV DAILY [facility] Vancomycin HCl 2 gm/ Sodium (Chloride) 500 mls @ 333.333 mls/hr IV NOW ONE Stop: 10/13/19 02:29 Last Admin: 10/13/19 04:58 Dose: 333.333 mls/hr Vancomycin HCl 1.25 gm/ Sodium (Chloride) 250 mls @ 166.667 mls/hr IV Q24H [facility] Norepinephrine Bitartrate (Norepinephr-0.9% Nacl 4 Mg/250) 4 mg in 250 mls @ 7.5 mls/hr IV TITRATE [facility]; Protocol Last Titration: 10/13/19 06:24 Dose: 30 mcg/min, 112.5 mls/hr Vasopressin 100 units/ Sodium (Chloride) 100 mls @ 0.6 mls/hr IV TITRATE [facility]; Protocol Last Titration: 10/13/19 04:23 Dose: 0.04 units/min, 2.4 mls/hr Sodium Bicarbonate 100 meq/ (Dextrose/Water) 200 mls @ 200 mls/hr IV ONETIME ONE Stop: 10/13/19 05:46 Last Admin: 10/13/19 06:37 Dose: Not Given Sodium Bicarbonate 100 meq/ (Dextrose/Water) 350 mls @ 350 mls/hr IV ONETIME ONE Stop: 10/13/19 05:59 Last Admin: 10/13/19 05:14 Dose: 350 mls/hr Sodium Bicarbonate 150 meq/ (Dextrose/Water) 1,150 mls @ 150 mls/hr IV ONETIME ONE Stop: 10/13/19 13:56 Last Admin: 10/13/19 06:36 Dose: Not Given Sodium Bicarbonate 150 meq/ (Dextrose/Water) 1,150 mls @ 150 mls/hr IV ASDIRECTED [facility] Insulin Human Regular (Novolin R) 10 unit IVPUSH ONETIME ONE Stop: 10/11/19 16:38 Last Admin: 10/11/19 17:00 Dose: 10 units Insulin Human Regular (Novolin R) 10 unit IVPUSH ONETIME ONE; Protocol Stop: 10/13/19 01:40 Last Admin: 10/13/19 01:57 Dose: 10 units Midazolam HCl (Versed 1 Mg/Ml) Confirm Administered Dose 2 mg .ROUTE .STK-MED ONE Stop: 10/13/19 01:33 Last Admin: 10/13/19 01:36 Dose: 2 mg Midazolam HCl (Versed 1 Mg/Ml) Confirm Administered Dose 2 mg .ROUTE .STK-MED ONE Stop: 10/13/19 01:34 Last Admin: 10/13/19 01:36 Dose: 2 mg Midazolam HCl (Versed 1 Mg/Ml) Confirm Administered Dose 4 mg .ROUTE .STK-MED ONE Stop: 10/13/19 02:30 Last Admin: 10/13/19 02:35 Dose: 4 mg Morphine Sulfate (Morphine) 2 mg IVPUSH Q2H PRN PRN Reason: Pain Last Admin: 10/12/19 00:11 Dose: 2 mg Morphine Sulfate (Morphine) 4 mg IVPUSH Q2H PRN PRN Reason: Pain Last Admin: 10/12/19 20:24 Dose: 4 mg Non-Formulary Medication (Cefazolin Sodium In 0.9 % Nacl [Cefazolin 2 G/100 Ml- 0.9% Nacl]) 200 mg IV TID [facility] Last Admin: 10/12/19 02:09 Dose: Not Given Non-Formulary Medication (Cefazolin Sodium In 0.9 % Nacl [Cefazolin 2 G/100 Ml- 0.9% Nacl]) 250 mg IV TID [facility] Ondansetron HCl (Zofran) 4 mg IVPUSH Q4H PRN PRN Reason: Nausea Last Admin: 10/12/19 19:10 Dose: 4 mg Piperacillin Sod/Tazobactam Sod (Zosyn) Confirm Administered Dose 2.25 gm .ROUTE .STK-MED ONE Stop: 10/13/19 03:39 Last Admin: 10/13/19 04:50 Dose: Not Given Prednisone (Prednisone) 60 mg PO DAILY [facility] Last Admin: 10/12/19 08:26 Dose: 60 mg Sodium Bicarbonate (Sodium Bicarbonate 8.4%) 50 meq IVPUSH ONETIME ONE Stop: 10/12/19 16:08 Last Admin: 10/12/19 16:44 Dose: 50 meq Sodium Bicarbonate (Sodium Bicarbonate 8.4%) 100 meq IVPUSH ONETIME ONE Stop: 10/13/19 03:15 Last Admin: 10/13/19 04:16 Dose: 100 meq Sodium Bicarbonate (Sodium Bicarbonate 8.4%) 150 meq IVPUSH ONETIME ONE Stop: 10/13/19 04:11 Last Admin: 10/13/19 04:34 Dose: 50 meq Sodium Polystyrene Sulfonate (Kayexalate) 15 gm PO ONETIME ONE Stop: 10/11/19 19:24 Last Admin: 10/11/19 20:20 Dose: 15 gm Succinylcholine Chloride (Quelicin) 140 mg IV STAT ONE Stop: 10/13/19 01:35 Last Admin: 10/13/19 01:34 Dose: 140 mg Vancomycin HCl (Vancomycin) 125 mg PO QID [facility] Last Admin: 10/12/19 06:50 Dose: 125 mg Vancomycin HCl (Vancomycin) 125 mg PO QID [facility] Vancomycin HCl (Vancomycin) 250 mg PO QID [facility] Last Admin: 10/13/19 06:06 Dose: Not Given
== END 2019-10-13 10:04 | disposition expired | DRG 720 ==
LOC: MW.ED 12:04 → MW.MS 16:31 → MW.ICU 10-13 02:17
PROVIDERS: ADMIT Student in an Organized Health Care Education/Training Program; ATTEND Student in an Organized Health Care Education/Training Program
PROC: 0BH18EZ Insertion of Endotracheal Airway into Trachea, Via Natural or Artificial Opening Endoscopic (ICD-10-PCS; principal; 2019-10-13)
PROC: 3E033XZ Introduction of Vasopressor into Peripheral Vein, Percutaneous Approach (ICD-10-PCS; 2019-10-13)
PROC: 039Y3ZZ Drainage of Upper Artery, Percutaneous Approach (ICD-10-PCS; 2019-10-13)
PROC: 03HY32Z Insertion of Monitoring Device into Upper Artery, Percutaneous Approach (ICD-10-PCS; 2019-10-13)
PROC: 5A12012 Performance of Cardiac Output, Single, Manual (ICD-10-PCS; 2019-10-13)
DX: A41.9 Sepsis, unspecified organism (principal); A04.72 Enterocolitis due to Clostridium difficile, not specified as recurrent; N17.9 Acute kidney failure, unspecified; R65.21 Severe sepsis with septic shock; K51.00 Ulcerative (chronic) pancolitis without complications; E78.5 Hyperlipidemia, unspecified; E87.1 Hypo-osmolality and hyponatremia; J96.00 Acute respiratory failure, unspecified whether with hypoxia or hypercapnia; M60.051 Infective myositis, right thigh; D89.9 Disorder involving the immune mechanism, unspecified; J18.9 Pneumonia, unspecified organism; C91.10 Chronic lymphocytic leukemia of B-cell type not having achieved remission; E86.0 Dehydration; E87.2 Acidosis; E87.5 Hyperkalemia; K21.9 Gastro-esophageal reflux disease without esophagitis; E87.6 Hypokalemia; Z88.0 Allergy status to penicillin; Z79.52 Long term (current) use of systemic steroids; Z79.899 Other long term (current) drug therapy; Z87.442 Personal history of urinary calculi; Z97.4 Presence of external hearing-aid; Z97.3 Presence of spectacles and contact lenses; Z86.19 Personal history of other infectious and parasitic diseases; Z95.828 Presence of other vascular implants and grafts
CPT/HCPCS: 31500; 36415; 36600; 36620; 71045; 71045-26; 74176; 74176-26; 76770; 76770-26; 80048; 80053; 81001; 82803; 83605; 83690; 83735; 84100; 85025; 87040; 87045; 87046; 87070; 87077; 87186; 87205; 87324; 87328; 87329; 87899; 92950; 93005; 94002; 96360; 99284; 99285-25; A9270-GY; J0330; J0610; J0690; J1644; J1720; J1815-GY; J2250; J2270; J2405; J2543; J3010; J3370; J3490; J7030; J7040; J7050; J7060; J7120